=== PATIENT | female | born 1935 | race Caucasian/White ===

== ENCOUNTER 2019-10-08 06:23 | Day surgery (SDC) | payer MEDICARE ==
[~2019-10-08 06:23] MED LIST: Sodium Chloride 0.9% 10 ML Syringe FLUSH PRN
[2019-10-08] MEDS ORDERED: Sodium Chloride 0.9% 10 ML Syringe FLUSH PRN (07:00)
--- NOTE | 2019-10-08 14:42 | OR ---
DATE OF PROCEDURE: 10/08/2019 SURGEON: Madhavi Lane MD POSTOPERATIVE CARE: Postoperative care will be provided mainly at the [address] [place] [address] [facility] in conjunction with [facility]. PREOPERATIVE DIAGNOSIS: Cataract, right eye. POSTOPERATIVE DIAGNOSIS: Cataract, right eye. PROCEDURE: Phacoemulsification with intraocular lens placement, right eye. ANESTHESIA: Topical and intracameral. ESTIMATED BLOOD LOSS: Minimal. COMPLICATIONS: None. PATHOLOGY SPECIMENS: None. SURGICAL FINDINGS: None. INDICATION FOR PROCEDURE: The patient is an 84-year-old female with history of a visually significant cataract in the right eye, which interfered with activities of daily living. This consisted of a nuclear sclerosis cataract. Following careful discussion of the risks, benefits and alternatives to cataract extraction with intraocular lens placement including blindness and , the patient elected to proceed, and informed, written consent was obtained prior to the procedure. DESCRIPTION OF THE PROCEDURE: The patient was previously identified, and a aliya placed above the right eye. All sources, including the patient, indicated that the right eye was the correct eye. The patient was subsequently taken to the operating room where standard monitors were applied. The patient was then prepped and draped in the usual sterile fashion for ophthalmic surgery. Attention was first directed at the 12 o'clock position where a paracentesis port was fashioned. Shugar solution followed by Viscoat was instilled into the eye. Attention was then directed to the 8:30 position where a triplanar incision was made in a near-clear manner using a keratome. A continuous capsulorrhexis was then made using a combination of the cystotome and Utrata forceps. Hydrodissection was achieved using a balanced salt solution, and the lens rotated nicely. Phacoemulsification was then done using a modified [id number] technique without complication. Phaco time was 8.28 CDE. The remaining cortex was removed using the irrigation/aspiration handpiece. Provisc was then instilled into the eye. A Technis lens, model [id number], at 19.5 diopters was then placed in the capsular bag using an [place] injector. The remaining viscoelastic was removed using the irrigation/aspiration forceps. All wounds were then checked and found to be watertight. The lid speculum and drapes were removed. Maxitrol ointment was placed in the patient's right eye, and the eye was shielded. The patient tolerated the procedure well. The patient was instructed to follow up tomorrow. All needle and sponge counts were correct at the end of the procedure. Madhavi Lane MD /[id number]
== END 2019-10-08 08:38 | disposition home or self-care (01) ==
LOC: JP.SDS 06:23
PROVIDERS: ATTEND Ophthalmology
DX: H25.11 Age-related nuclear cataract, right eye (principal); I10 Essential (primary) hypertension
CPT/HCPCS: 66984; V2632

== ENCOUNTER 2019-11-12 06:08 | Day surgery (SDC) | payer MEDICARE ==
[2019-11-12] MEDS ORDERED: Sodium Chloride 0.9% 10 ML Syringe FLUSH PRN (07:00)
--- NOTE | 2019-11-12 13:44 | OR ---
DATE OF PROCEDURE: 11/12/2019 SURGEON: Madhavi Lane MD POSTOPERATIVE CARE: Postoperative care will be provided mainly at the [address] [place] [address] [facility] in conjunction with [facility]. PREOPERATIVE DIAGNOSIS: Cataract, left eye. POSTOPERATIVE DIAGNOSIS: Cataract, left eye. PROCEDURE: Phacoemulsification with intraocular lens placement, left eye. ANESTHESIA: Topical and intracameral. ESTIMATED BLOOD LOSS: Minimal. COMPLICATIONS: None. PATHOLOGY SPECIMENS: None. SURGICAL FINDINGS: None. INDICATION FOR PROCEDURE: The patient is an 84-year-old female with history of a visually significant cataract in the left eye, which interfered with activities of daily living. This consisted of a nuclear sclerosis cataract. Following careful discussion of the risks, benefits and alternatives to cataract extraction with intraocular lens placement including blindness and , the patient elected to proceed, and informed, written consent was obtained prior to the procedure. DESCRIPTION OF THE PROCEDURE: The patient was previously identified, and a ailya placed above the left eye. All sources, including the patient, indicated that the left eye was the correct eye. The patient was subsequently taken to the operating room where standard monitors were applied. The patient was then prepped and draped in the usual sterile fashion for ophthalmic surgery. Attention was first directed at the 12 o'clock position where a paracentesis port was fashioned. Shugar solution followed by Viscoat was instilled into the eye. Attention was then directed to the 8:30 position where a triplanar incision was made in a near-clear manner using a keratome. A continuous capsulorrhexis was then made using a combination of the cystotome and Utrata forceps. Hydrodissection was achieved using a balanced salt solution, and the lens rotated nicely. Phacoemulsification was then done using a modified [id number] technique without complication. Phaco time was 10.41 CDE. The remaining cortex was removed using the irrigation/aspiration handpiece. Provisc was then instilled into the eye. A Technis lens, model [id number], at 19.5 diopters was then placed in the capsular bag using an Liberty injector. The remaining viscoelastic was removed using the irrigation/aspiration forceps. All wounds were then checked and found to be watertight. The lid speculum and drapes were removed. Maxitrol ointment was placed in the patient's left eye, and the eye was shielded. The patient tolerated the procedure well. The patient was instructed to follow up tomorrow. All needle and sponge counts were correct at the end of the procedure. Madhavi Lane MD /[id number]
== END 2019-11-12 07:49 | disposition home or self-care (01) ==
LOC: JP.SDS 06:08
PROVIDERS: ATTEND Ophthalmology
DX: H25.12 Age-related nuclear cataract, left eye (principal)
CPT/HCPCS: 66984; V2632

== ENCOUNTER 2020-07-25 01:59 | Inpatient (IN) | payer MEDICARE ==
--- NOTE | 2020-07-25 02:28 | EDM.PDOC ---
ED HPI GENERAL MEDICAL PROBLEM - General Chief Complaint: Lower Extremity Injury/Pain Stated Complaint: FALL VIA TRI Time Seen by Provider: 07/25/20 02:25 Source of Information: Reports: Patient History Limitations: Reports: No Limitations - History of Present Illness INITIAL COMMENTS - FREE TEXT/NARRATIVE: pt arrived with pain in the left hip. She fell tonight and was able to crawl to the phone. She has not been able to bear wt on the left hip. 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 Pain Score (Numeric/FACES): 5 - Related Data Allergies Allergy/AdvReac Type Severity Reaction Status Date / Time Antihistamines - Alkylamine Allergy Confusion Verified 07/25/20 02:00 aspirin Allergy Abdominal Verified 07/25/20 02:00 Cramps Dairy Products Allergy Diarrhea Verified 07/25/20 02:00 gluten Allergy Diarrhea Verified 07/25/20 02:00 hydrocodone Allergy Confusion Verified 07/25/20 02:00 oxycodone Allergy Confusion Verified 07/25/20 02:00 sulfamethoxazole Allergy Other Verified 07/25/20 02:00 [From Bactrim] trimethoprim [From Bactrim] Allergy Other Verified 07/25/20 02:00 Home Meds: Home Meds traMADol HCl [Tramadol HCl] 25 mg PO DAILY 11/01/17 [History] Metoprolol Succinate [Toprol Xl] 25 mg PO BID 12/23/17 [History] ALPRAZolam [Alprazolam] 0.25 mg PO ASDIRECTED 11/10/19 [History] Cetirizine [ZyrTEC] 10 mg PO DAILY 11/10/19 [History] Gabapentin [Neurontin] 300 mg PO BID 11/10/19 [History] Triazolam 0.25 mg PO BEDTIME PRN 11/10/19 [History] tiZANidine [Zanaflex] 4 mg PO DAILY 11/10/19 [History] Cholecalciferol (Vitamin D3) [Vitamin D3] 1,000 unit PO DAILY 07/25/20 [History] Past Medical History HEENT History: Reports: Cataract, Impaired Vision Other HEENT History: USES CHEATER GLASSES FOR READING, "allergic to the cold" Cardiovascular History: Reports: Hypertension Respiratory History: Reports: Asthma, Bronchitis, Recurrent Other Respiratory History: BRONCHIAL ASTHMA Gastrointestinal History: Reports: Gastritis, GERD, Irritable Bowel Syndrome Other Gastrointestinal History: HAS GASTRITIS WITH WHEAT DAIRY AND SUGAR Genitourinary History: Reports: None 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 left foot and ankle pain. low back pain. left wrist FX Neurological History: Reports: None Psychiatric History: Reports: Other (See Below) Other Psychiatric History: insomnia Endocrine/Metabolic History: Reports: None Hematologic History: Reports: None Immunologic History: Reports: None Oncologic (Cancer) History: Reports: None Dermatologic History: Reports: None - Infectious Disease History Infectious Disease History: Reports: Shingles - Past Surgical History Head Surgeries/Procedures: Reports: None HEENT Surgical History: Reports: Cataract Surgery GI Surgical History: Reports: Cholecystectomy, Colonoscopy Dermatological Surgical History: Reports: Other (See Below) Social & Family History - Family History Family Medical History: Noncontributory - Tobacco Use Tobacco Use Status *Q: Never Tobacco User - Caffeine Use Caffeine Use: Reports: None - Recreational Drug Use Recreational Drug Use: No Review of Systems - Review of Systems Review Of Systems: See Below Constitutional: Reports: No Symptoms Eyes: Reports: No Symptoms Ears: Reports: No Symptoms Nose: Reports: No Symptoms Mouth/Throat: Reports: No Symptoms Respiratory: Reports: No Symptoms Cardiovascular: Reports: No Symptoms GI/Abdominal: Reports: No Symptoms Genitourinary: Reports: No Symptoms Musculoskeletal: Reports: Other (painin the left hip area. ) Skin: Reports: No Symptoms Neurological: Reports: No Symptoms ED EXAM, GENERAL - Physical Exam Exam: See Below Free Text/Narrative:: pt arrived with pain in the left hip area. She fell tonight an hit the hip. She is now not able to weight bear. Exam Limited By: No Limitations General Appearance: Alert, Anxious, Severe Distress Ears: Normal TMs Nose: Normal Inspection Throat/Mouth: Normal Inspection Head: Atraumatic Neck: Normal Inspection Respiratory/Chest: No Respiratory Distress Cardiovascular: Regular Rate, Rhythm, Other ( slight irregularity) GI/Abdominal: Soft, Non-Tender (Female) Exam: Deferred Rectal (Female) Exam: Deferred Back Exam: Normal Inspection Extremities: Normal Inspection Neurological: Alert, Oriented, Normal Cognition Psychiatric: Anxious Course - Vital Signs Last Recorded V/S: Last Vital Signs Temp 35.3 C L 07/25/20 02:11 Pulse 70 07/25/20 02:11 Resp 18 07/25/20 02:11 BP 145/68 H 07/25/20 02:11 Pulse Ox 95 07/25/20 02:11 - Orders/Labs/Meds Orders: Active Orders 24 hr Category Date Time Status Shaikh Catheter Insertion [Insert Urinary Catheter] [OM. Care 07/25/20 02:39 Ordered PC] Stat Urinary Catheter Assessment [RC] ASDIRECTED Care 07/25/20 02:40 Ordered Hip Min 2V or 3V w Pelvis Lt [CR] Stat Exams 07/25/20 02:06 Ordered - Re-Assessments/Exams Free Text/Narrative Re-Assessment/Exam: 07/25/20 02:48 pt had a xray of her left hip which showed a fracture of the neck with some displacement 07/25/20 02:50 Departure - Departure Time of Disposition: 02:50 Disposition: Admitted As Inpatient 66 Condition: Fair Clinical Impression: Closed left hip fracture - Discharge Information Referrals: PCP,None [Primary Care Provider] - Forms: ED Department Discharge Care Plan Goals: admit to Dr Dale. Sepsis Event Note (ED) - Evaluation Sepsis Screening Result: No Definite Risk - Focused Exam Vital Signs: Vital Signs Temp Pulse Resp BP Pulse Ox 07/25/20 02:11 35.3 C L 70 18 145/68 H 95 - My Orders Last 24 Hours: My Active Orders 07/25/20 02:06 Hip Min 2V or 3V w Pelvis Lt [CR] Stat 07/25/20 02:39 Shaikh Catheter Insertion [Insert Urinary Catheter] [OM.PC] Stat 07/25/20 02:40 Urinary Catheter Assessment [RC] ASDIRECTED - Assessment/Plan Last 24 Hours: My Active Orders 07/25/20 02:06 Hip Min 2V or 3V w Pelvis Lt [CR] Stat 07/25/20 02:39 Shaikh Catheter Insertion [Insert Urinary Catheter] [OM.PC] Stat 07/25/20 02:40 Urinary Catheter Assessment [RC] ASDIRECTED
[2020-07-25] MEDS ORDERED: Sodium Chloride 0.9% 1,000 ML IV SCH (03:00)
[2020-07-25] MEDS ORDERED: Dextrose 5%-0.9% NaCl 1,000 ML IV SCH (03:15)
[2020-07-25] MEDS ORDERED: HYDROmorphone/Normal Saline 15 MG/30 ML PCA IV ONE (08:05)
[2020-07-25] MEDS ORDERED: HYDROmorphone/Normal Saline 15 MG/30 ML PCA IV PRN (08:15)
--- NOTE | 2020-07-25 08:28 | PCM.HP.2 ---
H&P History of Present Illness - General Date of Service: 07/25/20 Admit Problem/Dx: Admission Diagnosis/Problem Admission Diagnosis/Problem Hip fracture requiring operative repair Source of Information: Patient, EMS Notes Reviewed History Limitations: Reports: No Limitations - History of Present Illness Initial Comments - Free Text/Narative: She became dizzy last night and got up and fell and had severe pain. Called EMS and came to the hospital and found o have a fx of the left hip. Was checked for Covid-19 and was positive. She is having severe leg spasms as well as pain. Onset of Symptoms: Reports: Sudden Location: Reports: Lower Extremity, Left left hip Pain Score (Numeric/FACES): 4 - Related Data Allergies/Adverse Reactions: Allergies Allergy/AdvReac Type Severity Reaction Status Date / Time sulfamethoxazole Allergy Other Verified 07/25/20 02:00 [From Bactrim] trimethoprim [From Bactrim] Allergy Other Verified 07/25/20 02:00 Antihistamines - Alkylamine AdvReac Confusion Verified 07/25/20 07:08 aspirin AdvReac Abdominal Verified 07/25/20 07:08 Cramps Dairy Products AdvReac Diarrhea Verified 07/25/20 07:08 gluten AdvReac Diarrhea Verified 07/25/20 07:08 hydrocodone AdvReac Confusion Verified 07/25/20 07:08 oxycodone AdvReac Confusion Verified 07/25/20 07:08 Home Medications: Home Meds traMADol HCl [Tramadol HCl] 25 mg PO DAILY 11/01/17 [History] Metoprolol Succinate [Toprol Xl] 25 mg PO BID 12/23/17 [History] ALPRAZolam [Alprazolam] 0.25 mg PO ASDIRECTED 11/10/19 [History] Cetirizine [ZyrTEC] 10 mg PO DAILY 11/10/19 [History] Gabapentin [Neurontin] 300 mg PO BID 11/10/19 [History] Triazolam 0.25 mg PO BEDTIME PRN 11/10/19 [History] tiZANidine [Zanaflex] 4 mg PO DAILY 11/10/19 [History] Cholecalciferol (Vitamin D3) [Vitamin D3] 1,000 unit PO DAILY 07/25/20 [History] Past Medical History HEENT History: Reports: Cataract, Impaired Vision Other HEENT History: USES CHEATER GLASSES FOR READING, "allergic to the cold" Cardiovascular History: Reports: Hypertension Respiratory History: Reports: Asthma, Bronchitis, Recurrent Other Respiratory History: BRONCHIAL ASTHMA Gastrointestinal History: Reports: Gastritis, GERD, Irritable Bowel Syndrome Other Gastrointestinal History: HAS GASTRITIS WITH WHEAT DAIRY AND SUGAR Genitourinary History: Reports: 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 left foot and ankle pain. low back pain. left wrist FX Neurological History: Reports: None Psychiatric History: Reports: Other (See Below) Other Psychiatric History: insomnia Endocrine/Metabolic History: Reports: None Hematologic History: Reports: None Immunologic History: Reports: None Oncologic (Cancer) History: Reports: None Dermatologic History: Reports: None - Infectious Disease History Infectious Disease History: Reports: Shingles - Past Surgical History Head Surgeries/Procedures: Reports: None HEENT Surgical History: Reports: Cataract Surgery GI Surgical History: Reports: Cholecystectomy, Colonoscopy Dermatological Surgical History: Reports: Other (See Below) Social & Family History - Family History Family Medical History: Noncontributory - Tobacco Use Tobacco Use Status *Q: Never Tobacco User - Caffeine Use Caffeine Use: Reports: Coffee - Recreational Drug Use Recreational Drug Use: No H&P Review of Systems - Review of Systems: Review Of Systems: See Below General: Reports: Weakness HEENT: Reports: No Symptoms Pulmonary: Reports: No Symptoms Cardiovascular: Reports: No Symptoms Gastrointestinal: Reports: No Symptoms Genitourinary: Reports: No Symptoms Musculoskeletal: Reports: Leg Pain Skin: Reports: No Symptoms Psychiatric: Reports: No Symptoms Neurological: Reports: No Symptoms Hematologic/Lymphatic: Reports: No Symptoms Exam - Exam Exam: See Below - Vital Signs Vital Signs: Last Vital Signs Temp 97.4 F 07/25/20 04:13 Pulse 60 07/25/20 04:13 Resp 18 07/25/20 04:13 BP 175/80 H 07/25/20 04:13 Pulse Ox 95 07/25/20 02:11 Weight: 140 lb - Exam General: Alert, Oriented, 4 HEENT: PERRLA, Hearing Intact, Mucosa Moist & [place], Nares Patent, Normal Nasal Septum, Posterior Pharynx Clear, Conjunctiva Clear, EOMI, EACs Clear, TMs Clear Neck: Supple, Trachea Midline, 2 Lungs: Clear to Auscultation, Normal Respiratory Effort Cardiovascular: Regular Rate, Regular Rhythm GI/Abdominal Exam: Normal Bowel Sounds, Soft, Non-Tender, No Organomegaly, No Distention, No Abnormal Bruit, No Mass, Pelvis Stable Extremities: Joint Swelling, Leg Pain Peripheral Pulses: 1+: Radial (L), Radial (R) Skin: Warm, Dry, Intact DTR: 1+: Bicep (L), Bicep (R) Psychiatric: Alert, Normal Affect, Normal Mood - Patient Data Lab Results Last 24 hrs: Laboratory Results - last 24 hr 07/25/20 07/25/20 07/25/20 Range/Units 02:55 02:55 02:55 WBC 3.9 L (4.5-11.0) K/uL RBC 3.10 L (3.30-5.50) M/uL Hgb 9.5 L (12.0-15.0) g/dL Hct 29.6 L (36.0-48.0) % MCV 96 (80-98) fL MCH 31 (27-31) pg MCHC 32 (32-36) % Plt Count 132 L (150-400) K/uL Neut % (Auto) 78 H (36-66) % Lymph % (Auto) 14 L (24-44) % [place] % (Auto) 8 H (2-6) % Eos % (Auto) 1 L (2-4) % Baso % (Auto) 0 (0-1) % Sodium 128 L (140-148) mmol/L Potassium 3.9 (3.6-5.2) mmol/L Chloride 93 L (100-108) mmol/L Carbon Dioxide 25 (21-32) mmol/L Anion Gap 13.9 (5.0-14.0) mmol/L BUN 21 H (7-18) mg/dL Creatinine 1.2 H (0.6-1.0) mg/dL Est Cr Clr Drug Dosing 32.49 mL/min Estimated GFR (MDRD) 43 L (>60) Glucose 94 (74-106) mg/dL Calcium 8.4 L (8.5-10.1) mg/dL Total Bilirubin 0.2 (0.2-1.0) mg/dL AST 29 (15-37) U/L ALT 27 (12-78) U/L Alkaline Phosphatase 95 (46-116) U/L Total Protein 6.4 (6.4-8.2) g/dL Albumin 3.2 L (3.4-5.0) g/dL Globulin 3.2 (2.3-3.5) g/dL Albumin/Globulin Ratio 1.0 L (1.2-2.2) Urine Color Yellow (YELLOW) Urine Appearance Clear (CLEAR) Urine pH 6.0 (5.0-8.0) Ur Specific [place] 1.020 (1.008-1.030) Urine Protein Negative (NEGATIVE) mg/dL Urine Glucose (UA) Negative (NEGATIVE) mg/dL Urine Ketones Negative (NEGATIVE) mg/dL Urine Occult Blood Small H (NEGATIVE) Urine Nitrite Negative (NEGATIVE) Urine Bilirubin Negative (NEGATIVE) Urine Urobilinogen 0.2 (0.2-1.0) EU/dL Ur Leukocyte Esterase Negative (NEGATIVE) Urine RBC 0-5 (0-5) Urine WBC 0-5 (0-5) Ur Epithelial Cells Few Amorphous Sediment Not seen Urine Bacteria Few Urine Mucus Not seen SARS-CoV-2 RNA (SHRAVAN) (NEGATIVE) 07/25/20 Range/Units 03:30 WBC (4.5-11.0) K/uL RBC (3.30-5.50) M/uL Hgb (12.0-15.0) g/dL Hct (36.0-48.0) % MCV (80-98) fL MCH (27-31) pg MCHC (32-36) % Plt Count (150-400) K/uL Neut % (Auto) (36-66) % Lymph % (Auto) (24-44) % [place] % (Auto) (2-6) % Eos % (Auto) (2-4) % Baso % (Auto) (0-1) % Sodium (140-148) mmol/L Potassium (3.6-5.2) mmol/L Chloride (100-108) mmol/L Carbon Dioxide (21-32) mmol/L Anion Gap (5.0-14.0) mmol/L BUN (7-18) mg/dL Creatinine (0.6-1.0) mg/dL Est Cr Clr Drug Dosing mL/min Estimated GFR (MDRD) (>60) Glucose (74-106) mg/dL Calcium (8.5-10.1) mg/dL Total Bilirubin (0.2-1.0) mg/dL AST (15-37) U/L ALT (12-78) U/L Alkaline Phosphatase (46-116) U/L Total Protein (6.4-8.2) g/dL Albumin (3.4-5.0) g/dL Globulin (2.3-3.5) g/dL Albumin/Globulin Ratio (1.2-2.2) Urine Color (YELLOW) Urine Appearance (CLEAR) Urine pH (5.0-8.0) Ur Specific [place] (1.008-1.030) Urine Protein (NEGATIVE) mg/dL Urine Glucose (UA) (NEGATIVE) mg/dL Urine Ketones (NEGATIVE) mg/dL Urine Occult Blood (NEGATIVE) Urine Nitrite (NEGATIVE) Urine Bilirubin (NEGATIVE) Urine Urobilinogen (0.2-1.0) EU/dL Ur Leukocyte Esterase (NEGATIVE) Urine RBC (0-5) Urine WBC (0-5) Ur Epithelial Cells Amorphous Sediment Urine Bacteria Urine Mucus SARS-CoV-2 RNA (SHRAVAN) Positive H (NEGATIVE) Result Diagrams: 07/25/20 02:55 07/25/20 02:55 Sepsis Event Note - Evaluation Sepsis Screening Result: No Definite Risk - Focused Exam Vital Signs: Vital Signs Temp Pulse Resp BP Pulse Ox 07/25/20 04:13 97.4 F 60 18 175/80 H 07/25/20 02:11 95.5 F L 70 18 145/68 H 95 Problem List Initiated/Reviewed/Updated: Yes Orders Last 24hrs: Active Orders 24 hr Category Date Time Status Admission Status [Patient Status] [ADT] Routine ADT 07/25/20 03:02 Active Shaikh Catheter Insertion [Insert Urinary Catheter] [OM. Care 07/25/20 02:39 Ordered PC] Stat Notify Provider Consults [RC] ASDIRECTED Care 07/25/20 03:07 Active Urinary Catheter Assessment [RC] ASDIRECTED Care 07/25/20 02:40 Active Consult to Orthopedics [CONS] Routine Cons 07/25/20 03:06 Ordered NPO Now [Nothing per Oral Now Diet] [DIET] Diet 07/25/20 Breakfast Active Chest 1V Frontal [CR] Stat Exams 07/25/20 02:45 Taken Hip Min 2V or 3V w Pelvis Lt [CR] Stat Exams 07/25/20 02:06 Taken Dextrose 5%-0.9% NaCl [Dextrose 5%-Normal Saline] 1,000 Med 07/25/20 03:15 Active ml IV ASDIRECTED EKG 12 Lead [EK] Routine Ther 07/25/20 02:45 Ordered Medication Orders Dextrose/Sodium Chloride (Dextrose 5%-Normal Saline) 1,000 mls @ 25 mls/hr IV ASDIRECTED DIANA Last Admin: 07/25/20 04:53 Dose: 25 mls/hr Documented by: DARLING Assessment/Plan Comment:: Assessment/Plan: #1. Fracture of left hip. She will be going for surgery today. I have started Dilaudid for pain control. #2. Covid-19 positive #3. History of IBS: Stable #4. HTN: elevated now secondary to pain #5. Gout: Stable - Mortality Measure Prognosis:: Good
[2020-07-25] MEDS ORDERED: Naloxone 0.4 MG/ML SDV IV PRN (09:00)
--- NOTE | 2020-07-25 10:07 | CR ---
Hip Min 2V or 3V w Pelvis Lt, CLINICAL HISTORY: Left hip pain, fall FINDINGS: There is a fracture of the left femoral neck. There is some abduction of the proximal aspect. 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 IMPRESSION: Femoral neck fracture CHEST: AP supine CLINICAL HISTORY:Preop COMPARISON:None available FINDINGS: Lungs are hyperaerated. Heart size is normal. There are atherosclerotic changes in the aorta. There is an old right rib fracture. Impression: Emphysematous changes No acute cardiopulmonary process
[2020-07-25] MEDS ORDERED: ceFAZolin 2 GM in Premix Bag 1 BAG IV ONE (10:30)
[2020-07-25] MEDS ORDERED: Propofol 200 MG/20 ML SDV ONE (11:03)
[2020-07-25] MEDS ORDERED: fentaNYL 100 MCG/2 ML SDV ONE (11:03)
[2020-07-25] MEDS ORDERED: Midazolam 1 MG/ML 2 ML SDV ONE (11:04)
[2020-07-25] MEDS ORDERED: ALPRAZolam 0.25 MG Tab PO PRN (12:30)
[2020-07-25] MEDS ORDERED: ePHEDrine 50 MG/ML SDV IV ONE (13:00)
[2020-07-25] MEDS ORDERED: ePHEDrine 50 MG/ML SDV ONE (13:00)
[2020-07-25] MEDS ORDERED: Povidone-Iodine 10% Soln 118.25 ML Bottle ONE (13:33)
[2020-07-25] MEDS ORDERED: ALPRAZolam 0.25 MG Tab PO SCH (15:00)
[2020-07-25] MEDS ORDERED: Dextrose 5%-0.45% NaCl 1,000 ML IV SCH (15:00)
[2020-07-25] MEDS ORDERED: Temazepam 15 MG Cap PO PRN (15:02)
[2020-07-25] MEDS: tiZANidine 4 MG Tab PO SCH ×2 (15:06→17:26)
[2020-07-25] MEDS ORDERED: Metoclopramide 10 MG/2 ML SDV IV PRN (15:22)
--- NOTE | 2020-07-25 15:22 | CR ---
Pelvis 1V or 2V CLINICAL HISTORY: Postop FINDINGS: Patient has had placement of a left hip hemiprosthesis. Components appear well seated IMPRESSION: Status post op left hip prosthesis
[2020-07-25] MEDS: Ondansetron 4 MG/2 ML SDV IVPUSH PRN (15:30)
[2020-07-25] MEDS: Metoprolol Succinate 25 MG Tab.ER PO SCH ×2 (18:09→20:50)
[2020-07-25] MEDS: ceFAZolin 1 GM in Premix Bag 1 BAG IV SCH (20:23)
[2020-07-25] MEDS ORDERED: Gabapentin 300 MG Cap PO SCH (21:00)
[2020-07-25] MEDS ORDERED: HYDROmorphone 0.5 MG/0.5 ML Syringe IVPUSH PRN (22:26)
[2020-07-26] MEDS: ceFAZolin 1 GM in Premix Bag 1 BAG IV SCH ×2 (04:23→12:09)
[2020-07-26] MEDS: traMADol 50 MG Tab PO PRN ×3 (08:05→20:29)
--- NOTE | 2020-07-26 08:19 | PCM.PN ---
- General Info Date of Service: 07/26/20 Subjective Update: Having pain with movement in the left hip - Review of Systems General: Reports: Weakness HEENT: Reports: No Symptoms Pulmonary: Reports: Shortness of Breath Cardiovascular: Reports: No Symptoms Gastrointestinal: Reports: No Symptoms Genitourinary: Reports: No Symptoms Musculoskeletal: Reports: Leg Pain Neurological: Reports: Dizziness Psychiatric: Reports: Anxiety - Patient Data Vitals - Most Recent: Last Vital Signs Temp 100.8 F H 07/26/20 07:36 Pulse 70 07/26/20 07:36 Resp 18 07/26/20 07:36 BP 123/67 07/26/20 07:36 Pulse Ox 99 07/26/20 07:43 Orthostatic Blood Pressure [ 121/64 Supine] Orthostatic Blood Pressure [ 119/62 Sitting] Orthostatic Blood Pressure [ 83/59 Standing] Weight - Most Recent: 140 lb I&O - Last 24 Hours: Intake & Output 07/25/20 07/26/20 07/26/20 22:59 06:59 14:59 Intake Total 1064 508 Output Total 800 450 Balance 264 58 Med Orders - Current: Current Medications Alprazolam (Xanax) 0.25 mg PO DAILY PRN PRN Reason: Anxiety Last Admin: 07/26/20 00:42 Dose: 0.25 mg Documented by: Bandage/Support Products ( Nasal Director Of Planning) 1 applic NASBOTH BID [facility] Stop: 08/01/20 21:01 Cetirizine HCl (Zyrtec) 10 mg PO DAILY [facility] Cholecalciferol (Vitamin D3) 25 mcg PO DAILY [facility] Enoxaparin Sodium (Lovenox) 30 mg SUBCUT Q24H [facility] Gabapentin (Neurontin) 400 mg PO TID [facility] Gabapentin (Neurontin) 300 mg PO TID [facility] Hydromorphone HCl (Dilaudid) 0.5 mg IVPUSH Q2H PRN PRN Reason: Pain Cefazolin Sodium/Dextrose 1 gm (/ Premix) 50 mls @ 100 mls/hr IV Q8H [facility] Stop: 07/26/20 12:29 Last Admin: 07/26/20 04:23 Dose: 100 mls/hr Documented by: Dextrose/Sodium Chloride (Dextrose 5%-1/2 Ns) 1,000 mls @ 100 mls/hr IV ASDI RECTED [facility] Last Admin: 07/25/20 17:30 Dose: 100 mls/hr Documented by: Metoclopramide HCl (Reglan) 10 mg IV Q6H PRN PRN Reason: Nausea/Vomiting Last Admin: 07/25/20 16:06 Dose: 10 mg Documented by: Metoprolol Succinate (Toprol Xl) 25 mg PO BID [facility] Last Admin: 07/25/20 20:50 Dose: Not Given Documented by: Ondansetron HCl (Zofran) 4 mg IVPUSH Q6H PRN PRN Reason: Nausea/Vomiting Last Admin: 07/25/20 15:30 Dose: 4 mg Documented by: Temazepam (Restoril) 15 mg PO BEDTIME PRN PRN Reason: Insomnia Last Admin: 07/25/20 22:39 Dose: 15 mg Documented by: Tizanidine HCl (Zanaflex) 4 mg PO DAILY [facility] Last Admin: 07/25/20 17:26 Dose: 4 mg Documented by: Tramadol HCl (Ultram) 50 mg PO Q4H PRN PRN Reason: Pain (mild 1-3) Last Admin: 07/26/20 08:05 Dose: 50 mg Documented by: Discontinued Medications Ephedrine Sulfate (Ephedrine Sulfate) 50 mg .ROUTE .STK-MED ONE Stop: 07/25/20 13:01 Fentanyl (Sublimaze) Confirm Administered Dose 100 mcg .ROUTE .STK-MED ONE Stop: 07/25/20 11:04 Gabapentin (Neurontin) 300 mg PO BID [facility] Last Admin: 07/25/20 20:48 Dose: 300 mg Documented by: Hydromorphone HCl (Dilaudid [employer] 15 Mg In Ns 30 Ml) Confirm Administered Dose 15 mg IV .STK-MED ONE Stop: 07/25/20 08:06 Last Admin: 07/25/20 08:12 Dose: 15 mg Documented by: Hydromorphone HCl (Dilaudid [employer] Conservationist 15 Mg In Ns 30 Ml) 0 mg IV ASDIRECTED PRN; Protocol PRN Reason: PAIN CONTROL Last Admin: 07/25/20 09:39 Dose: 15 mg Documented by: Sodium Chloride (Normal Saline) 1,000 mls @ 999 mls/hr IV ASDIRECTED [facility] Dextrose/Sodium Chloride (Dextrose 5%-Normal Saline) 1,000 mls @ 25 mls/hr IV ASDIRECTED [facility] Last Admin: 07/25/20 04:53 Dose: 25 mls/hr Documented by: Cefazolin Sodium/Dextrose 2 gm (/ Premix) 50 mls @ 100 mls/hr IV ONETIME ONE Stop: 07/25/20 10:59 Last Admin: 07/25/20 12:38 Dose: 100 mls/hr Documented by: Midazolam HCl (Versed 1 Mg/Ml) Confirm Administered Dose 2 mg .ROUTE .STK-MED ONE Stop: 07/25/20 11:05 Naloxone HCl (Narcan) 0.1 mg IV ASDIRECTED PRN PRN Reason: decreased respiratory rate Povidone Iodine (Betadine 10% Soln) Confirm Administered Dose 1 ml .ROUTE .STK- MED ONE Stop: 07/25/20 13:34 Last Admin: 07/25/20 13:58 Dose: 40 ml Documented by: Propofol (Diprivan 20 Ml) Confirm Administered Dose 200 mg .ROUTE .STK-MED ONE Stop: 07/25/20 11:04 - Exam General: Alert, Oriented HEENT: Pupils Equal, Pupils Reactive, EOMI, Mucous Membr. Moist/Labelle Neck: Supple Lungs: Clear to Auscultation, Normal Respiratory Effort Cardiovascular: Regular Rate, Regular Rhythm GI/Abdominal Exam: Normal Bowel Sounds, Soft, Non-Tender, No Organomegaly, No Distention, No Abnormal Bruit, No Mass, Pelvis Stable Back Exam: Normal Inspection, Full Range of Motion Peripheral Pulses: 1+: Radial (L), Radial (R) Skin: Warm, Dry, Intact Neurological: No New Focal Deficit Psy/Mental Status: Alert, Normal Affect, Normal Mood Sepsis Event Note - Evaluation Sepsis Screening Result: No Definite Risk - Focused Exam Vital Signs: Vital Signs Temp Pulse Resp BP Pulse Ox 07/26/20 07:43 99 07/26/20 07:36 100.8 F H 70 18 123/67 99 07/26/20 04:26 99.7 F 69 16 126/70 98 07/26/20 01:45 96 07/25/20 22:26 98.6 F 64 18 119/62 99 - Problem List Review Problem List Initiated/Reviewed/Updated: Yes - My Orders Last 24 Hours: My Active Orders 07/25/20 Breakfast NPO Now [Nothing per Oral Now Diet] [DIET] 07/25/20 08:30 Patient Status [ADT] Routine Oxygen Therapy [RC] PRN VTE/DVT Education [RC] Per Unit Routine Vital Signs [RC] Q4H Resuscitation Status Routine 07/25/20 10:00 tiZANidine [Zanaflex] 4 mg PO DAILY 07/25/20 12:30 ALPRAZolam [Xanax] 0.25 mg PO DAILY PRN 07/26/20 09:00 Gabapentin [Neurontin] 300 mg PO TID Gabapentin [Neurontin] 400 mg PO TID - Plan Plan:: Assessment/Plan: #1. Fracture of left hip. She is S/P hip repair and having pain in the joint. She was complaining of SOB this morning but very anxious. I have increased Neurontin to 400 tid to try to control pain. #2. Covid-19 positive #3. History of IBS: Stable #4. HTN: elevated now secondary to pain. BP good control. #5. Gout: Stable
[2020-07-26] MEDS ORDERED: Gabapentin 300 MG Cap PO SCH (09:00)
[2020-07-26] MEDS: Metoprolol Succinate 25 MG Tab.ER PO SCH ×2 (09:20→20:29)
[2020-07-26] MEDS: Ondansetron 4 MG/2 ML SDV IVPUSH PRN ×2 (09:55→20:29)
[2020-07-26] MEDS: Enoxaparin 30 MG/0.3 ML Syringe SUBCUT SCH (09:57)
[2020-07-26] MEDS: Gabapentin 400 MG Cap PO SCH ×3 (09:57→20:28)
[2020-07-26] MEDS: Cholecalciferol (Vitamin D3) 25 MCG Tab PO SCH (09:58)
[2020-07-26] MEDS: Cetirizine 10 MG Tab PO SCH (09:58)
[2020-07-26] MEDS: tiZANidine 4 MG Tab PO SCH (10:06)
[2020-07-26] MEDS: Docusate Sodium 100 MG Cap PO SCH ×2 (10:07→20:33)
[2020-07-26] MEDS: NS + KCl 20mEq/L 1,000 ML IV SCH (12:24)
[2020-07-26] MEDS: Magnesium Sulfate/Water 2 GM in Premix Bag 1 BAG IV SCH ×3 (12:26→23:41)
[2020-07-26] MEDS: Nozin Nasal Sanitizer NASBOTH SCH ×2 (12:27→20:28)
[2020-07-26] MEDS ORDERED: Albuterol 8 GM Inhaler INH PRN (16:18)
[2020-07-26] MEDS: Acetaminophen 325 MG Tab PO PRN (20:59)
[2020-07-27] MEDS: Acetaminophen 325 MG Tab PO PRN ×3 (03:00→20:42)
[2020-07-27] MEDS: Enoxaparin 30 MG/0.3 ML Syringe SUBCUT SCH (08:47)
[2020-07-27] MEDS: Docusate Sodium 100 MG Cap PO SCH ×2 (08:48→20:16)
[2020-07-27] MEDS: Gabapentin 400 MG Cap PO SCH ×3 (08:48→20:40)
[2020-07-27] MEDS: tiZANidine 4 MG Tab PO SCH (08:48)
[2020-07-27] MEDS: Nozin Nasal Sanitizer NASBOTH SCH ×2 (08:48→20:42)
[2020-07-27] MEDS: Cetirizine 10 MG Tab PO SCH (08:48)
[2020-07-27] MEDS: Cholecalciferol (Vitamin D3) 25 MCG Tab PO SCH (08:48)
[2020-07-27] MEDS: NS + KCl 20mEq/L 1,000 ML IV SCH (08:51)
[2020-07-27] MEDS: Metoprolol Succinate 25 MG Tab.ER PO SCH ×2 (08:53→20:16)
[2020-07-27] MEDS: Ferrous Sulfate 325 MG Tab PO SCH (09:44)
--- NOTE | 2020-07-27 10:57 | PCM.SURGPN ---
- General Info Date of Service: 07/26/20 Date of Surgery/Procedure: 07/25/20 Post-Op Diagnosis: left femoral neck fracture Functional Status: Reports: Incentive Spirometry - Review of Systems General: Reports: Fatigue Musculoskeletal: Reports: Leg Pain Skin: Reports: No Symptoms Neurological: Reports: No Symptoms Psychiatric: Reports: Anxiety - Patient Data Vitals - Most Recent: Last Vital Signs Temp 36.9 C 07/27/20 07:42 Pulse 100 07/27/20 09:56 Resp 18 07/27/20 07:42 BP 106/48 L 07/27/20 08:53 Pulse Ox 92 L 07/27/20 07:42 Orthostatic Blood Pressure [ 121/64 Supine] Orthostatic Blood Pressure [ 119/62 Sitting] Orthostatic Blood Pressure [ 83/59 Standing] Weight - Most Recent: 63.503 kg I&O - Last 24 Hours: Intake & Output 07/26/20 07/27/20 07/27/20 22:59 06:59 14:59 Intake Total 953 958 Output Total 475 900 Balance 478 58 Lab Results Last 24 Hrs: Laboratory Results - last 24 hr 07/27/20 07/27/20 Range/Units 05:52 05:52 WBC 3.4 L (4.5-11.0) K/uL RBC 2.42 L (3.30-5.50) M/uL Hgb 7.4 L (12.0-15.0) g/dL Hct 23.0 L (36.0-48.0) % MCV 95 (80-98) fL MCH 31 (27-31) pg MCHC 32 (32-36) % Plt Count 98 L (150-400) K/uL Neut % (Auto) 70 H (36-66) % Lymph % (Auto) 17 L (24-44) % [place] % (Auto) 11 H (2-6) % Eos % (Auto) 2 (2-4) % Baso % (Auto) 0 (0-1) % Sodium 131 L (140-148) mmol/L Potassium 4.2 (3.6-5.2) mmol/L Chloride 99 L (100-108) mmol/L Carbon Dioxide 27 (21-32) mmol/L Anion Gap 9.2 (5.0-14.0) mmol/L BUN 14 (7-18) mg/dL Creatinine 1.1 H (0.6-1.0) mg/dL Est Cr Clr Drug Dosing 38.17 mL/min Estimated GFR (MDRD) 47 L (>60) Glucose 99 (74-106) mg/dL Calcium 7.5 L (8.5-10.1) mg/dL Magnesium 2.9 H D (1.8-2.4) mg/dL Total Bilirubin 0.3 (0.2-1.0) mg/dL AST 31 (15-37) U/L ALT 20 (12-78) U/L Alkaline Phosphatase 61 (46-116) U/L Total Protein 5.3 L (6.4-8.2) g/dL Albumin 2.2 L (3.4-5.0) g/dL Globulin 3.1 (2.3-3.5) g/dL Albumin/Globulin Ratio 0.7 L (1.2-2.2) Bert Results Last 24 Hrs: Microbiology 07/27/20 09:16 Group A Streptococcus Rapid Screen - Final Throat NEGATIVE STREP A SCREEN REFERENCE RANGE: NEGATIVE Med Orders - Current: Current Medications Acetaminophen (Tylenol) 650 mg PO Q4H PRN PRN Reason: Fever Last Admin: 07/27/20 03:00 Dose: 650 mg Documented by: Albuterol (Ventolin Hfa) 0 gm INH Q4H PRN PRN Reason: Cough Alprazolam (Xanax) 0.25 mg PO DAILY PRN PRN Reason: Anxiety Last Admin: 07/26/20 00:42 Dose: 0.25 mg Documented by: Bandage/Support Products ( Nasal Complaint Manager) 1 applic NASBOTH BID [facility] Stop: 08/01/20 21:01 Last Admin: 07/27/20 08:48 Dose: 1 swab Documented by: Cetirizine HCl (Zyrtec) 10 mg PO DAILY [facility] Last Admin: 07/27/20 08:48 Dose: 10 mg Documented by: Cholecalciferol (Vitamin D3) 25 mcg PO DAILY [facility] Last Admin: 07/27/20 08:48 Dose: 25 mcg Documented by: Docusate Sodium (Colace) 100 mg PO BID [facility] Last Admin: 07/27/20 08:48 Dose: 100 mg Documented by: Enoxaparin Sodium (Lovenox) 30 mg SUBCUT Q24H [facility] Last Admin: 07/27/20 08:47 Dose: 30 mg Documented by: Ferrous Sulfate (Ferrous Sulfate) 325 mg PO WITHBREAKFAST [facility] Last Admin: 07/27/20 09:44 Dose: 325 mg Documented by: Gabapentin (Neurontin) 400 mg PO TID [facility] Last Admin: 07/27/20 08:48 Dose: 400 mg Documented by: Hydromorphone HCl (Dilaudid) 0.5 mg IVPUSH Q2H PRN PRN Reason: Pain Potassium Chloride/Sodium Chloride (Normal Saline With 20 Meq Kcl) 1,000 mls @ 50 mls/hr IV ASDIRECTED [facility] Last Admin: 07/27/20 08:51 Dose: 50 mls/hr Documented by: Metoclopramide HCl (Reglan) 10 mg IV Q6H PRN PRN Reason: Nausea/Vomiting Last Admin: 07/25/20 16:06 Dose: 10 mg Documented by: Metoprolol Succinate (Toprol Xl) 25 mg PO BID [facility] Last Admin: 07/27/20 08:53 Dose: Not Given Documented by: Ondansetron HCl (Zofran) 4 mg IVPUSH Q6H PRN PRN Reason: Nausea/Vomiting Last Admin: 07/26/20 20:29 Dose: 4 mg Documented by: Temazepam (Restoril) 15 mg PO BEDTIME PRN PRN Reason: Insomnia Last Admin: 07/25/20 22:39 Dose: 15 mg Documented by: Tizanidine HCl (Zanaflex) 4 mg PO DAILY [facility] Last Admin: 07/27/20 08:48 Dose: 4 mg Documented by: Tramadol HCl (Ultram) 50 mg PO Q4H PRN PRN Reason: Pain (mild 1-3) Last Admin: 07/26/20 20:29 Dose: 50 mg Documented by: Discontinued Medications Ephedrine Sulfate (Ephedrine Sulfate) 50 mg .ROUTE .STK-MED ONE Stop: 07/25/20 13:01 Fentanyl (Sublimaze) Confirm Administered Dose 100 mcg .ROUTE .STK-MED ONE Stop: 07/25/20 11:04 Gabapentin (Neurontin) 300 mg PO BID [facility] Last Admin: 07/25/20 20:48 Dose: 300 mg Documented by: Hydromorphone HCl (Dilaudid Seam Steamer 15 Mg In Ns 30 Ml) Confirm Administered Dose 15 mg IV .STK-MED ONE Stop: 07/25/20 08:06 Last Admin: 07/25/20 08:12 Dose: 15 mg Documented by: Hydromorphone HCl (Dilaudid Seam Steamer 15 Mg In Ns 30 Ml) 0 mg IV ASDIRECTED PRN; Protocol PRN Reason: POLYSOMNOGRAPHY TECHNOLOGIST PAIN CONTROL Last Admin: 07/25/20 09:39 Dose: 15 mg Documented by: Sodium Chloride (Normal Saline) 1,000 mls @ 999 mls/hr IV ASDIRECTED [facility] Dextrose/Sodium Chloride (Dextrose 5%-Normal Saline) 1,000 mls @ 25 mls/hr IV ASDIRECTED [facility] Last Admin: 07/25/20 04:53 Dose: 25 mls/hr Documented by: Cefazolin Sodium/Dextrose 2 gm (/ Premix) 50 mls @ 100 mls/hr IV ONETIME ONE Stop: 07/25/20 10:59 Last Admin: 07/25/20 12:38 Dose: 100 mls/hr Documented by: Cefazolin Sodium/Dextrose 1 gm (/ Premix) 50 mls @ 100 mls/hr IV Q8H [facility] Stop: 07/26/20 12:29 Last Admin: 07/26/20 12:09 Dose: 100 mls/hr Documented by: Dextrose/Sodium Chloride (Dextrose 5%-1/2 Ns) 1,000 mls @ 100 mls/hr IV ASDIRECTED [facility] Last Admin: 07/25/20 17:30 Dose: 100 mls/hr Documented by: Magnesium Sulfate 2 gm/ Premix 50 mls @ 25 mls/hr IV Q6H [facility] Stop: 07/27/20 01:59 Last Admin: 07/26/20 23:41 Dose: 25 mls/hr Documented by: Midazolam HCl (Versed 1 Mg/Ml) Confirm Administered Dose 2 mg .ROUTE .STK-MED ONE Stop: 07/25/20 11:05 Naloxone HCl (Narcan) 0.1 mg IV ASDIRECTED PRN PRN Reason: decreased respiratory rate Povidone Iodine (Betadine 10% Soln) Confirm Administered Dose 1 ml .ROUTE .STK- MED ONE Stop: 07/25/20 13:34 Last Admin: 07/25/20 13:58 Dose: 40 ml Documented by: Propofol (Diprivan 20 Ml) Confirm Administered Dose 200 mg .ROUTE .STK-MED ONE Stop: 07/25/20 11:04 - Exam Wound/Incisions: Dressing Dry and Intact General: Alert, Oriented HEENT: Pupils Equal Neck: Supple Extremities: Leg Pain, Limited Range of Motion Skin: Warm, Dry Neurological: No New Focal Deficit Psy/Mental Status: Alert, Normal Affect, Normal Mood Sepsis Event Note - Evaluation Sepsis Screening Result: No Definite Risk - Focused Exam Vital Signs: Vital Signs Temp Temp Pulse Resp BP BP Pulse Ox 07/27/20 09:56 100 07/27/20 08:53 106/48 L 07/27/20 07:42 36.9 C 45 L 18 106/48 L 92 L 07/27/20 07:00 100 07/27/20 02:52 37.1 C 68 16 114/52 L 98 07/27/20 01:33 99 07/27/20 00:05 66 98 - Problem List & Annotations (1) Closed left hip fracture SNOMED Code(s): 049707272 Code(s): S72.002A - FRACTURE OF UNSP PART OF NECK OF LEFT FEMUR, INIT Status: Acute Current Visit: Yes Qualifiers: Encounter type: initial encounter Qualified Code(s): S72.002A - Fracture of unspecified part of neck of left femur, initial encounter for closed fracture (2) Status post-operative repair of closed hip fracture SNOMED Code(s): 510809677 Code(s): Z98.890 - OTHER SPECIFIED POSTPROCEDURAL STATES; Z87.81 - PERSONAL HISTORY OF (HEALED) TRAUMATIC FRACTURE Status: Acute Current Visit: Yes - Problem List Review Problem List Initiated/Reviewed/Updated: Yes - My Orders Last 24 Hours: Active Orders 24 hr Category Date Time Status RT Post Treatment Assessment [RC] Click to Edit Care 07/26/20 16:20 Active CULTURE STREP A CONFIRMATION [] Stat Lab 07/27/20 09:16 Results STREP SCRN A RAPID W CULT CONF [] Stat Lab 07/27/20 09:16 Results Acetaminophen [TylenoL] Med 07/26/20 20:38 Active 650 mg PO Q4H PRN Albuterol [Ventolin HFA] Med 07/26/20 16:18 Active 0 gm INH Q4H PRN Ferrous Sulfate Med 07/27/20 09:17 Active 325 mg PO WITHBREAKFAST NS + KCl 20mEq/L [Normal Saline with 20 mEq KCl] 1,000 Med 07/26/20 12:00 Active ml IV ASDIRECTED Medication Orders Acetaminophen (Tylenol) 650 mg PO Q4H PRN PRN Reason: Fever Last Admin: 07/27/20 03:00 Dose: 650 mg Documented by: Admin: 07/26/20 20:59 Dose: 650 mg Documented by: KISHAN Albuterol (Ventolin Hfa) 0 gm INH Q4H PRN PRN Reason: Cough Alprazolam (Xanax) 0.25 mg PO DAILY PRN PRN Reason: Anxiety Last Admin: 07/26/20 00:42 Dose: 0.25 mg Documented by: RAISSA Bandage/Support Products ( Nasal Complaint Manager) 1 applic NASBOTH BID [facility] Stop: 08/01/20 21:01 Last Admin: 07/27/20 08:48 Dose: 1 swab Documented by: Admin: 07/26/20 20:28 Dose: 1 swab Documented by: Admin: 07/26/20 12:27 Dose: 1 swab Documented by: LUZ Cetirizine HCl (Zyrtec) 10 mg PO DAILY [facility] Last Admin: 07/27/20 08:48 Dose: 10 mg Documented by: Admin: 07/26/20 09:58 Dose: 10 mg Documented by: LUZ Cholecalciferol (Vitamin D3) 25 mcg PO DAILY [facility] Last Admin: 07/27/20 08:48 Dose: 25 mcg Documented by: Admin: 07/26/20 09:58 Dose: 25 mcg Documented by: LUZ Docusate Sodium (Colace) 100 mg PO BID [facility] Last Admin: 07/27/20 08:48 Dose: 100 mg Documented by: Admin: 07/26/20 20:33 Dose: Not Given Documented by: Admin: 07/26/20 10:07 Dose: Not Given Documented by: LUZ Enoxaparin Sodium (Lovenox) 30 mg SUBCUT Q24H [facility] Last Admin: 07/27/20 08:47 Dose: 30 mg Documented by: Admin: 07/26/20 09:57 Dose: 30 mg Documented by: LUZ Ferrous Sulfate (Ferrous Sulfate) 325 mg PO WITHBREAKFAST [facility] Last Admin: 07/27/20 09:44 Dose: 325 mg Documented by: CHAITANYA Gabapentin (Neurontin) 400 mg PO TID [facility] Last Admin: 07/27/20 08:48 Dose: 400 mg Documented by: Admin: 07/26/20 20:28 Dose: 400 mg Documented by: Admin: 07/26/20 15:09 Dose: 400 mg Documented by: Admin: 07/26/20 09:57 Dose: 400 mg Documented by: LUZ Hydromorphone HCl (Dilaudid) 0.5 mg IVPUSH Q2H PRN PRN Reason: Pain Potassium Chloride/Sodium Chloride (Normal Saline With 20 Meq Kcl) 1,000 mls @ 50 mls/hr IV ASDIRECTED [facility] Admin: 07/27/20 08:51 Dose: 50 mls/hr Documented by: Infusion: 07/27/20 08:24 Dose: 50 mls/hr Documented by: Admin: 07/26/20 12:24 Dose: 50 mls/hr Documented by: LUZ Metoclopramide HCl (Reglan) 10 mg IV Q6H PRN PRN Reason: Nausea/Vomiting Last Admin: 07/25/20 16:06 Dose: 10 mg Documented by: GETACHEW Metoprolol Succinate (Toprol Xl) 25 mg PO BID [facility] Admin: 07/27/20 08:53 Dose: Not Given Documented by: Admin: 07/26/20 20:29 Dose: Not Given Documented by: Admin: 07/26/20 09:20 Dose: Not Given Documented by: Admin: 07/25/20 20:50 Dose: Not Given Documented by: Admin: 07/25/20 18:09 Dose: 25 mg Documented by: LUZ Ondansetron HCl (Zofran) 4 mg IVPUSH Q6H PRN PRN Reason: Nausea/Vomiting Last Admin: 07/26/20 20:29 Dose: 4 mg Documented by: Admin: 07/26/20 09:55 Dose: 4 mg Documented by: Admin: 07/25/20 15:30 Dose: 4 mg Documented by: LUZ Temazepam (Restoril) 15 mg PO BEDTIME PRN PRN Reason: Insomnia Last Admin: 07/25/20 22:39 Dose: 15 mg Documented by: RAISSA Tizanidine HCl (Zanaflex) 4 mg PO DAILY [facility] Last Admin: 07/27/20 08:48 Dose: 4 mg Documented by: Admin: 07/26/20 10:06 Dose: 4 mg Documented by: Admin: 07/25/20 17:26 Dose: 4 mg Documented by: LUZ Tramadol HCl (Ultram) 50 mg PO Q4H PRN PRN Reason: Pain (mild 1-3) Last Admin: 07/26/20 20:29 Dose: 50 mg Documented by: Admin: 07/26/20 15:09 Dose: 50 mg Documented by: Admin: 07/26/20 08:05 Dose: 50 mg Documented by: LUZ - Assessment Assessment (Free Text/Narrative):: Tolerated procedure without complications, Has been up in chair today, switched over to Tramadol for pain, controlling pain fairly well, difficulty with mobility and transfers in/out of bed as expected, also reports pain in coccyx area from immobility which she has has in the past - Plan Plan (Free Text/Narrative):: Continue PT/OT with NATTY d/c [place] on AM, discharge planning for SNF
--- NOTE | 2020-07-27 13:34 | PCM.PN ---
- General Info Date of Service: 07/27/20 Subjective Update: Pain has improved. Having a sore throat. - Review of Systems General: Reports: Weakness HEENT: Reports: Sore Throat Pulmonary: Reports: Shortness of Breath Cardiovascular: Reports: No Symptoms Gastrointestinal: Reports: No Symptoms Genitourinary: Reports: No Symptoms Musculoskeletal: Reports: Joint Pain Skin: Reports: No Symptoms Neurological: Reports: Difficulty Walking, Weakness Psychiatric: Reports: Anxiety - Patient Data Vitals - Most Recent: Last Vital Signs Temp 98.6 F 07/27/20 12:29 Pulse 70 07/27/20 12:29 Resp 18 07/27/20 12:29 BP 116/65 07/27/20 12:29 Pulse Ox 100 07/27/20 12:29 Orthostatic Blood Pressure [ 121/64 Supine] Orthostatic Blood Pressure [ 119/62 Sitting] Orthostatic Blood Pressure [ 83/59 Standing] Weight - Most Recent: 140 lb I&O - Last 24 Hours: Intake & Output 07/26/20 07/27/20 07/27/20 22:59 06:59 14:59 Intake Total 953 958 500 Output Total 475 900 700 Balance 478 58 -200 Lab Results Last 24 Hours: Laboratory Results - last 24 hr 07/27/20 07/27/20 Range/Units 05:52 05:52 WBC 3.4 L (4.5-11.0) K/uL RBC 2.42 L (3.30-5.50) M/uL Hgb 7.4 L (12.0-15.0) g/dL Hct 23.0 L (36.0-48.0) % MCV 95 (80-98) fL MCH 31 (27-31) pg MCHC 32 (32-36) % Plt Count 98 L (150-400) K/uL Neut % (Auto) 70 H (36-66) % Lymph % (Auto) 17 L (24-44) % [place] % (Auto) 11 H (2-6) % Eos % (Auto) 2 (2-4) % Baso % (Auto) 0 (0-1) % Sodium 131 L (140-148) mmol/L Potassium 4.2 (3.6-5.2) mmol/L Chloride 99 L (100-108) mmol/L Carbon Dioxide 27 (21-32) mmol/L Anion Gap 9.2 (5.0-14.0) mmol/L BUN 14 (7-18) mg/dL Creatinine 1.1 H (0.6-1.0) mg/dL Est Cr Clr Drug Dosing 38.17 mL/min Estimated GFR (MDRD) 47 L (>60) Glucose 99 (74-106) mg/dL Calcium 7.5 L (8.5-10.1) mg/dL Magnesium 2.9 H D (1.8-2.4) mg/dL Total Bilirubin 0.3 (0.2-1.0) mg/dL AST 31 (15-37) U/L ALT 20 (12-78) U/L Alkaline Phosphatase 61 (46-116) U/L Total Protein 5.3 L (6.4-8.2) g/dL Albumin 2.2 L (3.4-5.0) g/dL Globulin 3.1 (2.3-3.5) g/dL Albumin/Globulin Ratio 0.7 L (1.2-2.2) Bert Results Last 24 Hours: Microbiology 07/27/20 09:16 Group A Streptococcus Rapid Screen - Final Throat NEGATIVE STREP A SCREEN REFERENCE RANGE: NEGATIVE Med Orders - Current: Current Medications Acetaminophen (Tylenol) 650 mg PO Q4H PRN PRN Reason: Fever Last Admin: 07/27/20 03:00 Dose: 650 mg Documented by: Albuterol (Ventolin Hfa) 0 gm INH Q4H PRN PRN Reason: Cough Alprazolam (Xanax) 0.25 mg PO DAILY PRN PRN Reason: Anxiety Last Admin: 07/26/20 00:42 Dose: 0.25 mg Documented by: Bandage/Support Products ( Nasal Publication Designer) 1 applic NASBOTH BID [facility] Stop: 08/01/20 21:01 Last Admin: 07/27/20 08:48 Dose: 1 swab Documented by: Cetirizine HCl (Zyrtec) 10 mg PO DAILY [facility] Last Admin: 07/27/20 08:48 Dose: 10 mg Documented by: Cholecalciferol (Vitamin D3) 25 mcg PO DAILY [facility] Last Admin: 07/27/20 08:48 Dose: 25 mcg Documented by: Docusate Sodium (Colace) 100 mg PO BID [facility] Last Admin: 07/27/20 08:48 Dose: 100 mg Documented by: Enoxaparin Sodium (Lovenox) 30 mg SUBCUT Q24H [facility] Last Admin: 07/27/20 08:47 Dose: 30 mg Documented by: Ferrous Sulfate (Ferrous Sulfate) 325 mg PO WITHBREAKFAST [facility] Last Admin: 07/27/20 09:44 Dose: 325 mg Documented by: Gabapentin (Neurontin) 400 mg PO TID [facility] Last Admin: 07/27/20 08:48 Dose: 400 mg Documented by: Hydromorphone HCl (Dilaudid) 0.5 mg IVPUSH Q2H PRN PRN Reason: Pain Potassium Chloride/Sodium Chloride (Normal Saline With 20 Meq Kcl) 1,000 mls @ 50 mls/hr IV ASDIRECTED [facility] Last Admin: 07/27/20 08:51 Dose: 50 mls/hr Documented by: Metoclopramide HCl (Reglan) 10 mg IV Q6H PRN PRN Reason: Nausea/Vomiting Last Admin: 07/25/20 16:06 Dose: 10 mg Documented by: Metoprolol Succinate (Toprol Xl) 25 mg PO BID [facility] Last Admin: 07/27/20 08:53 Dose: Not Given Documented by: Ondansetron HCl (Zofran) 4 mg IVPUSH Q6H PRN PRN Reason: Nausea/Vomiting Last Admin: 07/26/20 20:29 Dose: 4 mg Documented by: Temazepam (Restoril) 15 mg PO BEDTIME PRN PRN Reason: Insomnia Last Admin: 07/25/20 22:39 Dose: 15 mg Documented by: Tizanidine HCl (Zanaflex) 4 mg PO DAILY [facility] Last Admin: 07/27/20 08:48 Dose: 4 mg Documented by: Tramadol HCl (Ultram) 50 mg PO Q4H PRN PRN Reason: Pain (mild 1-3) Last Admin: 07/26/20 20:29 Dose: 50 mg Documented by: Discontinued Medications Ephedrine Sulfate (Ephedrine Sulfate) 50 mg .ROUTE .STK-MED ONE Stop: 07/25/20 13:01 Fentanyl (Sublimaze) Confirm Administered Dose 100 mcg .ROUTE .STK-MED ONE Stop: 07/25/20 11:04 Gabapentin (Neurontin) 300 mg PO BID [facility] Last Admin: 07/25/20 20:48 Dose: 300 mg Documented by: Hydromorphone HCl (Dilaudid Job Service Specialist 15 Mg In Ns 30 Ml) Confirm Administered Dose 15 mg IV .STK-MED ONE Stop: 07/25/20 08:06 Last Admin: 07/25/20 08:12 Dose: 15 mg Documented by: Hydromorphone HCl (Dilaudid Job Service Specialist 15 Mg In Ns 30 Ml) 0 mg IV ASDIRECTED PRN; Protocol PRN 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 Last Admin: 07/25/20 09:39 Dose: 15 mg Documented by: Sodium Chloride (Normal Saline) 1,000 mls @ 999 mls/hr IV ASDIRECTED [facility] Dextrose/Sodium Chloride (Dextrose 5%-Normal Saline) 1,000 mls @ 25 mls/hr IV ASDIRECTED [facility] Last Admin: 07/25/20 04:53 Dose: 25 mls/hr Documented by: Cefazolin Sodium/Dextrose 2 gm (/ Premix) 50 mls @ 100 mls/hr IV ONETIME ONE Stop: 07/25/20 10:59 Last Admin: 07/25/20 12:38 Dose: 100 mls/hr Documented by: Cefazolin Sodium/Dextrose 1 gm (/ Premix) 50 mls @ 100 mls/hr IV Q8H [facility] Stop: 07/26/20 12:29 Last Admin: 07/26/20 12:09 Dose: 100 mls/hr Documented by: Dextrose/Sodium Chloride (Dextrose 5%-1/2 Ns) 1,000 mls @ 100 mls/hr IV ASDIRECTED [facility] Last Admin: 07/25/20 17:30 Dose: 100 mls/hr Documented by: Magnesium Sulfate 2 gm/ Premix 50 mls @ 25 mls/hr IV Q6H [facility] Stop: 07/27/20 01:59 Last Admin: 07/26/20 23:41 Dose: 25 mls/hr Documented by: Midazolam HCl (Versed 1 Mg/Ml) Confirm Administered Dose 2 mg .ROUTE .STK-MED ONE Stop: 07/25/20 11:05 Naloxone HCl (Narcan) 0.1 mg IV ASDIRECTED PRN PRN Reason: decreased respiratory rate Povidone Iodine (Betadine 10% Soln) Confirm Administered Dose 1 ml .ROUTE .STK- MED ONE Stop: 07/25/20 13:34 Last Admin: 07/25/20 13:58 Dose: 40 ml Documented by: Propofol (Diprivan 20 Ml) Confirm Administered Dose 200 mg .ROUTE .STK-MED ONE Stop: 07/25/20 11:04 - Exam General: Alert, Oriented HEENT: Pupils Equal, Pupils Reactive, EOMI, Mucous Membr. Moist/[place] Neck: Supple Lungs: Clear to Auscultation, Normal Respiratory Effort Cardiovascular: Regular Rate, Regular Rhythm Extremities: Normal Inspection, Normal Range of Motion, Non-Tender, No Pedal Edema, Normal Capillary Refill Peripheral Pulses: 1+: Radial (L), Radial (R) Skin: Warm, Dry, Intact Wound/Incisions: Healing Well Psy/Mental Status: Alert, Normal Affect, Normal Mood Sepsis Event Note - Evaluation Sepsis Screening Result: No Definite Risk - Focused Exam Vital Signs: Vital Signs Temp Temp Pulse Resp BP BP Pulse Ox 07/27/20 12:29 98.6 F 70 18 116/65 100 07/27/20 09:56 99 07/27/20 08:53 106/48 L 07/27/20 07:42 98.5 F 45 L 18 106/48 L 92 L 07/27/20 07:00 100 07/27/20 02:52 98.7 F 68 16 114/52 L 98 07/27/20 01:33 99 - Problem List Review Problem List Initiated/Reviewed/Updated: Yes - My Orders Last 24 Hours: My Active Orders 07/26/20 16:18 Albuterol [Ventolin HFA] 0 gm INH Q4H PRN 07/26/20 16:20 RT Post Treatment Assessment [RC] Click to Edit 07/26/20 20:38 Acetaminophen [TylenoL] 650 mg PO Q4H PRN 07/27/20 09:16 CULTURE STREP A CONFIRMATION [RM] Stat STREP SCRN A RAPID W CULT CONF [RM] Stat 07/27/20 09:17 Ferrous Sulfate 325 mg PO WITHBREAKFAST - Plan Plan:: Assessment/Plan: #1. Fracture of left hip. She is S/P hip repair and having pain in the joint. She was complaining of a sore throat but no fever. Strep test was negative. #2. Covid-19 positive #3. History of IBS: Stable #4. HTN: elevated now secondary to pain. BP good control. #5. Gout: Stable labs today WBC 3.4 Hb. 7.4 from 9.1 yesterday.PLT diwn ti 98 frin 156 yesterday. Na 131 K 4.2. Mg up to 2.9 Alb and protein 5.3. Liver functions normal. Plan would be to go to the [place] tomorrow at [facility] tomorrow if stable. HB repeated tomorrow and do a retic count today.
[2020-07-28] MEDS: Ferrous Sulfate 325 MG Tab PO SCH (07:33)
[2020-07-28] MEDS: Enoxaparin 30 MG/0.3 ML Syringe SUBCUT SCH (07:33)
--- NOTE | 2020-07-28 08:26 | PCM.PN ---
- General Info Date of Service: 07/28/20 Functional Status: Reports: Pain Controlled - Review of Systems General: Reports: Weakness, Fatigue HEENT: Reports: No Symptoms Pulmonary: Reports: No Symptoms Cardiovascular: Reports: No Symptoms Gastrointestinal: Reports: No Symptoms Genitourinary: Reports: No Symptoms Musculoskeletal: Reports: No Symptoms Skin: Reports: No Symptoms Neurological: Reports: Difficulty Walking, Weakness, Gait Disturbance Psychiatric: Reports: Anxiety - Patient Data Vitals - Most Recent: Last Vital Signs Temp 100.6 F 07/28/20 07:00 Pulse 85 07/28/20 07:00 Resp 16 07/28/20 07:00 BP 111/53 L 07/28/20 07:00 Pulse Ox 93 L 07/28/20 07:38 Orthostatic Blood Pressure [ 121/64 Supine] Orthostatic Blood Pressure [ 119/62 Sitting] Orthostatic Blood Pressure [ 83/59 Standing] Weight - Most Recent: 140 lb I&O - Last 24 Hours: Intake & Output 07/27/20 07/28/20 07/28/20 22:59 06:59 14:59 Intake Total 500 296 Balance 500 296 Lab Results Last 24 Hours: Laboratory Results - last 24 hr 07/27/20 07/28/20 07/28/20 Range/Units 05:51 04:20 04:20 WBC 3.7 L (4.5-11.0) K/uL RBC 2.36 L (3.30-5.50) M/uL Hgb 7.2 L (12.0-15.0) g/dL Hct 22.6 L (36.0-48.0) % MCV 96 (80-98) fL MCH 31 (27-31) pg MCHC 32 (32-36) % Plt Count 105 L (150-400) K/uL Neut % (Auto) 75 H (36-66) % Lymph % (Auto) 15 L (24-44) % [place] % (Auto) 9 H (2-6) % Eos % (Auto) 1 L (2-4) % Baso % (Auto) 0 (0-1) % Percent Retic 0.7 (0.5-1.5) % Sodium 132 L (140-148) mmol/L Potassium 4.1 (3.6-5.2) mmol/L Chloride 100 (100-108) mmol/L Carbon Dioxide 25 (21-32) mmol/L Anion Gap 11.1 (5.0-14.0) mmol/L BUN 20 H (7-18) mg/dL Creatinine 1.0 (0.6-1.0) mg/dL Est Cr Clr Drug Dosing 41.98 mL/min Estimated GFR (MDRD) 53 L (>60) Glucose 89 (74-106) mg/dL Calcium 7.6 L (8.5-10.1) mg/dL Total Bilirubin 0.3 (0.2-1.0) mg/dL AST 36 (15-37) U/L ALT 23 (12-78) U/L Alkaline Phosphatase 61 (46-116) U/L Total Protein 5.2 L (6.4-8.2) g/dL Albumin 2.0 L (3.4-5.0) g/dL Globulin 3.2 (2.3-3.5) g/dL Albumin/Globulin Ratio 0.6 L (1.2-2.2) Bert Results Last 24 Hours: Microbiology 07/27/20 09:16 Quick Strep Confirmation Culture - Preliminary Throat NO GROUP A STREP ISOLATED REFERENCE RANGE: NEGATIVE Group A Streptococcus Rapid Screen - Final NEGATIVE STREP A SCREEN REFERENCE RANGE: NEGATIVE Med Orders - Current: Current Medications Acetaminophen (Tylenol) 650 mg PO Q4H PRN PRN Reason: Fever Last Admin: 07/27/20 20:42 Dose: 650 mg Documented by: Albuterol (Ventolin Hfa) 0 gm INH Q4H PRN PRN Reason: Cough Alprazolam (Xanax) 0.25 mg PO DAILY PRN PRN Reason: Anxiety Last Admin: 07/26/20 00:42 Dose: 0.25 mg Documented by: Bandage/Support Products ( Nasal Junior Account Executive) 1 applic NASBOTH BID [facility] Stop: 08/01/20 21:01 Last Admin: 07/27/20 20:42 Dose: 1 swab Documented by: Cetirizine HCl (Zyrtec) 10 mg PO DAILY [facility] Last Admin: 07/27/20 08:48 Dose: 10 mg Documented by: Cholecalciferol (Vitamin D3) 25 mcg PO DAILY [facility] Last Admin: 07/27/20 08:48 Dose: 25 mcg Documented by: Docusate Sodium (Colace) 100 mg PO BID [facility] Last Admin: 07/27/20 20:16 Dose: Not Given Documented by: Enoxaparin Sodium (Lovenox) 30 mg SUBCUT Q24H [facility] Last Admin: 07/28/20 07:33 Dose: 30 mg Documented by: Ferrous Sulfate (Ferrous Sulfate) 325 mg PO WITHBREAKFAST [facility] Last Admin: 07/28/20 07:33 Dose: 325 mg Documented by: Gabapentin (Neurontin) 400 mg PO TID [facility] Last Admin: 07/27/20 20:40 Dose: 400 mg Documented by: Hydromorphone HCl (Dilaudid) 0.5 mg IVPUSH Q2H PRN PRN Reason: Pain Potassium Chloride/Sodium Chloride (Normal Saline With 20 Meq Kcl) 1,000 mls @ 50 mls/hr IV ASDIRECTED [facility] Last Admin: 07/27/20 08:51 Dose: 50 mls/hr Documented by: Metoclopramide HCl (Reglan) 10 mg IV Q6H PRN PRN Reason: Nausea/Vomiting Last Admin: 07/25/20 16:06 Dose: 10 mg Documented by: Metoprolol Succinate (Toprol Xl) 25 mg PO BID [facility] Last Admin: 07/27/20 20:16 Dose: Not Given Documented by: Ondansetron HCl (Zofran) 4 mg IVPUSH Q6H PRN PRN Reason: Nausea/Vomiting Last Admin: 07/26/20 20:29 Dose: 4 mg Documented by: Temazepam (Restoril) 15 mg PO BEDTIME PRN PRN Reason: Insomnia Last Admin: 07/25/20 22:39 Dose: 15 mg Documented by: Tizanidine HCl (Zanaflex) 4 mg PO DAILY [facility] Last Admin: 07/27/20 08:48 Dose: 4 mg Documented by: Tramadol HCl (Ultram) 50 mg PO Q4H PRN PRN Reason: Pain (mild 1-3) Last Admin: 07/26/20 20:29 Dose: 50 mg Documented by: Discontinued Medications Ephedrine Sulfate (Ephedrine Sulfate) 50 mg .ROUTE .STK-MED ONE Stop: 07/25/20 13:01 Fentanyl (Sublimaze) Confirm Administered Dose 100 mcg .ROUTE .STK-MED ONE Stop: 07/25/20 11:04 Gabapentin (Neurontin) 300 mg PO BID [facility] Last Admin: 07/25/20 20:48 Dose: 300 mg Documented by: Hydromorphone HCl (Dilaudid Silk Brusher 15 Mg In Ns 30 Ml) Confirm Administered Dose 15 mg IV .STK-MED ONE Stop: 07/25/20 08:06 Last Admin: 07/25/20 08:12 Dose: 15 mg Documented by: Hydromorphone HCl (Dilaudid Silk Brusher 15 Mg In Ns 30 Ml) 0 mg IV ASDIRECTED PRN; Protocol 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 Last Admin: 07/25/20 09:39 Dose: 15 mg Documented by: Sodium Chloride (Normal Saline) 1,000 mls @ 999 mls/hr IV ASDIRECTED [facility] Dextrose/Sodium Chloride (Dextrose 5%-Normal Saline) 1,000 mls @ 25 mls/hr IV ASDIRECTED [facility] Last Admin: 07/25/20 04:53 Dose: 25 mls/hr Documented by: Cefazolin Sodium/Dextrose 2 gm (/ Premix) 50 mls @ 100 mls/hr IV ONETIME ONE Stop: 07/25/20 10:59 Last Admin: 07/25/20 12:38 Dose: 100 mls/hr Documented by: Cefazolin Sodium/Dextrose 1 gm (/ Premix) 50 mls @ 100 mls/hr IV Q8H [facility] Stop: 07/26/20 12:29 Last Admin: 07/26/20 12:09 Dose: 100 mls/hr Documented by: Dextrose/Sodium Chloride (Dextrose 5%-1/2 Ns) 1,000 mls @ 100 mls/hr IV ASDIRECTED [facility] Last Admin: 07/25/20 17:30 Dose: 100 mls/hr Documented by: Magnesium Sulfate 2 gm/ Premix 50 mls @ 25 mls/hr IV Q6H [facility] Stop: 07/27/20 01:59 Last Admin: 07/26/20 23:41 Dose: 25 mls/hr Documented by: Midazolam HCl (Versed 1 Mg/Ml) Confirm Administered Dose 2 mg .ROUTE .STK-MED ONE Stop: 07/25/20 11:05 Naloxone HCl (Narcan) 0.1 mg IV ASDIRECTED PRN PRN Reason: decreased respiratory rate Povidone Iodine (Betadine 10% Soln) Confirm Administered Dose 1 ml .ROUTE .STK- MED ONE Stop: 07/25/20 13:34 Last Admin: 07/25/20 13:58 Dose: 40 ml Documented by: Propofol (Diprivan 20 Ml) Confirm Administered Dose 200 mg .ROUTE .STK-MED ONE Stop: 07/25/20 11:04 - Exam General: Alert, Oriented, Cooperative, Mild Distress HEENT: Pupils Equal, Pupils Reactive, EOMI, Mucous Membr. Moist/[place] Neck: Supple Lungs: Clear to Auscultation, Normal Respiratory Effort Cardiovascular: Regular Rate, Regular Rhythm GI/Abdominal Exam: Normal Bowel Sounds, Soft, Non-Tender, No Organomegaly, No Distention, No Abnormal Bruit, No Mass, Pelvis Stable Extremities: Normal Inspection, Normal Range of Motion, Non-Tender, No Pedal Edema, Normal Capillary Refill Peripheral Pulses: 1+: Radial (L), Radial (R) Skin: Warm, Dry, Intact Wound/Incisions: Healing Well Neurological: No New Focal Deficit Psy/Mental Status: Alert, Anxious Sepsis Event Note - Evaluation Sepsis Screening Result: No Definite Risk - Focused Exam Vital Signs: Vital Signs Temp Temp Pulse Resp BP Pulse Ox 07/28/20 07:38 93 L 07/28/20 07:33 98 07/28/20 07:00 100.6 F 85 16 111/53 L 99 07/28/20 03:59 100.6 F 87 18 102/66 98 07/28/20 01:00 98 07/27/20 22:20 100.6 F 80 18 95/62 98 07/27/20 21:12 100.0 F 07/27/20 20:42 100.4 F - Problem List Review Problem List Initiated/Reviewed/Updated: Yes - My Orders Last 24 Hours: My Active Orders 07/27/20 09:16 CULTURE STREP A CONFIRMATION [] Stat STREP SCRN A RAPID W CULT CONF [RM] Stat 07/27/20 09:17 Ferrous Sulfate 325 mg PO WITHBREAKFAST 07/28/20 08:19 RED BLOOD CELLS LP [BBK] Routine TYPE AND SCREEN [BBK] Routine - Plan Plan:: Assessment/Plan: #1. Fracture of left hip. She is S/P hip repair and having pain in the joint. #2. Covid-19 positive #3. History of IBS: Stable #4. HTN: elevated now secondary to pain. BP good control. #5. Gout: Stable labs today WBC 3.7. Temp 100.6 Hb. 7.2 from 7.4 yesterday and retic count 0.7. I will give 2 units of PC today then discharge to the [facility]. PLT 105 from 98 yesterday. Na 132 K 4.1. Liver functions normal. Plan would be to go to the [place] today at [facility] after 2 units given.
--- NOTE | 2020-07-28 08:38 | PCM.DCSUM1 ---
Discharge Summary - Hospital Course HPI Initial Comments: She is feeling weak with minimal energy and having fatigue. Pain is controlled. Brief History: She became dizzy and fell at home and fractured her left hip. Before admission she was found to be positive for the Galo virus and adnitted to the Covid unit. Diagnosis: Stroke: No - Discharge Data Discharge Date: 07/28/20 Discharge Disposition: DC/[facility] to [facility] Condition: Good - Referral to Home Health Primary Care Physician: PCP None - Patient Summary/Data Operative Procedure(s) Performed: Hip surgery after fracture of the left hp Complications: Covid-19 positive Consults: Consultations 07/25/20 03:06 Consult to Orthopedics [CONS] Routine Consulting Provider: Salo Hollins Call Completed to Consulting Physician: Cheyanne 07/25/20 14:38 Consult to Physical Therapy [PT Evaluation and Treatment] [CONS] Routine Please Evaluate and Treat. PT Reason for Consult: Post op Ortho Surgery Pending Discharge: Yes Discharge Disposition: Group Home Facility Special Instructions: Left hip WBAT, posterior hip precautions This query below is only for informational purposes and is not editable. Admission Diagnosis/Problem: Hip fracture requiring operative repair 07/25/20 14:39 Consult to Occupational Therapy [OT Evaluation and Treatment] [CONS] Routine Please Evaluate and Treat. OT Reason for Consult: ADL's Pending Discharge: Yes Discharge Disposition: Group Home Facility Special Instructions: ADLs and adaptive devices This query below is only for informational purposes and is not editable. 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 She came to the hospital and was found to be positive for covid-19. She was admitted and had a new hip placed. She did run a fever while in the hospital and had also anemia at the time of discharge of 7.2. 2 units of pac cells were given before discharge. She is being transferred to [facility] for continued care. - Patient Instructions Diet: Heart Healthy Diet Activity: As Tolerated - Discharge Plan *PRESCRIPTION DRUG MONITORING PROGRAM REVIEWED*: No Prescriptions/Med Rec: Gabapentin [Neurontin] 400 mg PO TID #90 capsule ALPRAZolam [Xanax] 0.25 mg PO DAILY PRN #30 tablet PRN Reason: Anxiety Home Medications: Home Meds traMADol HCl [Tramadol HCl] 25 mg PO DAILY 11/01/17 [History] Metoprolol Succinate [Toprol Xl] 25 mg PO BID 12/23/17 [History] ALPRAZolam [Alprazolam] 0.25 mg PO ASDIRECTED 11/10/19 [History] Cetirizine [ZyrTEC] 10 mg PO DAILY 11/10/19 [History] Triazolam 0.25 mg PO BEDTIME PRN 11/10/19 [History] tiZANidine [Zanaflex] 4 mg PO DAILY 11/10/19 [History] Cholecalciferol (Vitamin D3) [Vitamin D3] 1,000 unit PO DAILY 07/25/20 [History] ALPRAZolam [Xanax] 0.25 mg PO DAILY PRN #30 tablet 07/28/20 [Rx] Acetaminophen [Tylenol] 650 mg PO Q4H PRN tablet 07/28/20 [Rx] Albuterol [Ventolin HFA] 0 gm INH Q4H PRN inhaler 07/28/20 [Rx] Enoxaparin [Lovenox] 30 mg SUBCUT Q24H syringe 07/28/20 [Rx] Ferrous Sulfate 325 mg PO WITHBREAKFAST tablet 07/28/20 [Rx] Gabapentin [Neurontin] 400 mg PO TID #90 capsule 07/28/20 [Rx] tiZANidine [Zanaflex] 4 mg PO DAILY tablet 07/28/20 [Rx] traMADol [Ultram] 50 mg PO Q4H PRN tablet 07/28/20 [Rx] Forms: ED Department Discharge Referrals: PCP,None [Primary Care Provider] - - Discharge Summary/Plan Comment DC Time >30 min.: Yes Discharge Summary/Plan Comment: Assessment/Plan: #1. Fracture left hip. repaired and healing #2. Positive for C. Virus #3. HTN: Condition Stable at the present time. #4. Gout: Stable. #5. Anxiety: Chronic and stable continue with Xanax. #6. Anemia: 2 units of PC given the day of discharge to the NH Will be transferred to the NH post transfusion. - General Info Functional Status: Reports: Pain Controlled - Review of Systems General: Reports: Weakness HEENT: Reports: No Symptoms Pulmonary: Reports: No Symptoms Cardiovascular: Reports: No Symptoms Gastrointestinal: Reports: No Symptoms Genitourinary: Reports: No Symptoms Musculoskeletal: Reports: Leg Pain, Joint Pain, Joint Swelling Skin: Reports: No Symptoms Psychiatric: Reports: Anxiety - Patient Data Vitals - Most Recent: Last Vital Signs Temp 100.6 F 07/28/20 07:00 Pulse 85 07/28/20 07:00 Resp 16 07/28/20 07:00 BP 111/53 L 07/28/20 07:00 Pulse Ox 93 L 07/28/20 07:38 Orthostatic Blood Pressure [ 121/64 Supine] Orthostatic Blood Pressure [ 119/62 Sitting] Orthostatic Blood Pressure [ 83/59 Standing] Weight - Most Recent: 140 lb I&O - Last 24 hours: Intake & Output 07/27/20 07/28/20 07/28/20 22:59 06:59 14:59 Intake Total 500 296 Balance 500 296 Lab Results - Last 24 hrs: Laboratory Results - last 24 hr 07/27/20 07/28/20 07/28/20 Range/Units 05:51 04:20 04:20 WBC 3.7 L (4.5-11.0) K/uL RBC 2.36 L (3.30-5.50) M/uL Hgb 7.2 L (12.0-15.0) g/dL Hct 22.6 L (36.0-48.0) % MCV 96 (80-98) fL MCH 31 (27-31) pg MCHC 32 (32-36) % Plt Count 105 L (150-400) K/uL Neut % (Auto) 75 H (36-66) % Lymph % (Auto) 15 L (24-44) % [place] % (Auto) 9 H (2-6) % Eos % (Auto) 1 L (2-4) % Baso % (Auto) 0 (0-1) % Percent Retic 0.7 (0.5-1.5) % Sodium 132 L (140-148) mmol/L Potassium 4.1 (3.6-5.2) mmol/L Chloride 100 (100-108) mmol/L Carbon Dioxide 25 (21-32) mmol/L Anion Gap 11.1 (5.0-14.0) mmol/L BUN 20 H (7-18) mg/dL Creatinine 1.0 (0.6-1.0) mg/dL Est Cr Clr Drug Dosing 41.98 mL/min Estimated GFR (MDRD) 53 L (>60) Glucose 89 (74-106) mg/dL Calcium 7.6 L (8.5-10.1) mg/dL Total Bilirubin 0.3 (0.2-1.0) mg/dL AST 36 (15-37) U/L ALT 23 (12-78) U/L Alkaline Phosphatase 61 (46-116) U/L Total Protein 5.2 L (6.4-8.2) g/dL Albumin 2.0 L (3.4-5.0) g/dL Globulin 3.2 (2.3-3.5) g/dL Albumin/Globulin Ratio 0.6 L (1.2-2.2) YAHAIRA Results - Last 24 hrs: Microbiology 07/27/20 09:16 Quick Strep Confirmation Culture - Preliminary Throat NO GROUP A STREP ISOLATED REFERENCE RANGE: NEGATIVE Group A Streptococcus Rapid Screen - Final NEGATIVE STREP A SCREEN REFERENCE RANGE: NEGATIVE Med Orders - Current: Current Medications Acetaminophen (Tylenol) 650 mg PO Q4H PRN PRN Reason: Fever Last Admin: 07/27/20 20:42 Dose: 650 mg Documented by: Albuterol (Ventolin Hfa) 0 gm INH Q4H PRN PRN Reason: Cough Alprazolam (Xanax) 0.25 mg PO DAILY PRN PRN Reason: Anxiety Last Admin: 07/26/20 00:42 Dose: 0.25 mg Documented by: Bandage/Support Products ( Nasal Sales Service Manager) 1 applic NASBOTH BID [facility] Stop: 08/01/20 21:01 Last Admin: 07/27/20 20:42 Dose: 1 swab Documented by: Cetirizine HCl (Zyrtec) 10 mg PO DAILY [facility] Last Admin: 07/27/20 08:48 Dose: 10 mg Documented by: Cholecalciferol (Vitamin D3) 25 mcg PO DAILY [facility] Last Admin: 07/27/20 08:48 Dose: 25 mcg Documented by: Docusate Sodium (Colace) 100 mg PO BID [facility] Last Admin: 07/27/20 20:16 Dose: Not Given Documented by: Enoxaparin Sodium (Lovenox) 30 mg SUBCUT Q24H [facility] Last Admin: 07/28/20 07:33 Dose: 30 mg Documented by: Ferrous Sulfate (Ferrous Sulfate) 325 mg PO WITHBREAKFAST [facility] Last Admin: 07/28/20 07:33 Dose: 325 mg Documented by: Gabapentin (Neurontin) 400 mg PO TID [facility] Last Admin: 07/27/20 20:40 Dose: 400 mg Documented by: Hydromorphone HCl (Dilaudid) 0.5 mg IVPUSH Q2H PRN PRN Reason: Pain Potassium Chloride/Sodium Chloride (Normal Saline With 20 Meq Kcl) 1,000 mls @ 50 mls/hr IV ASDIRECTED [facility] Last Admin: 07/27/20 08:51 Dose: 50 mls/hr Documented by: Metoclopramide HCl (Reglan) 10 mg IV Q6H PRN PRN Reason: Nausea/Vomiting Last Admin: 07/25/20 16:06 Dose: 10 mg Documented by: Metoprolol Succinate (Toprol Xl) 25 mg PO BID [facility] Last Admin: 07/27/20 20:16 Dose: Not Given Documented by: Ondansetron HCl (Zofran) 4 mg IVPUSH Q6H PRN PRN Reason: Nausea/Vomiting Last Admin: 07/26/20 20:29 Dose: 4 mg Documented by: Temazepam (Restoril) 15 mg PO BEDTIME PRN PRN Reason: Insomnia Last Admin: 07/25/20 22:39 Dose: 15 mg Documented by: Tizanidine HCl (Zanaflex) 4 mg PO DAILY [facility] Last Admin: 07/27/20 08:48 Dose: 4 mg Documented by: Tramadol HCl (Ultram) 50 mg PO Q4H PRN PRN Reason: Pain (mild 1-3) Last Admin: 07/26/20 20:29 Dose: 50 mg Documented by: Discontinued Medications Ephedrine Sulfate (Ephedrine Sulfate) 50 mg .ROUTE .STK-MED ONE Stop: 07/25/20 13:01 Fentanyl (Sublimaze) Confirm Administered Dose 100 mcg .ROUTE .STK-MED ONE Stop: 07/25/20 11:04 Gabapentin (Neurontin) 300 mg PO BID [facility] Last Admin: 07/25/20 20:48 Dose: 300 mg Documented by: Hydromorphone HCl (Dilaudid Telemetry Registered Nurse 15 Mg In Ns 30 Ml) Confirm Administered Dose 15 mg IV .STK-MED ONE Stop: 07/25/20 08:06 Last Admin: 07/25/20 08:12 Dose: 15 mg Documented by: Hydromorphone HCl (Dilaudid Telemetry Registered Nurse 15 Mg In Ns 30 Ml) 0 mg IV ASDIRECTED PRN; Protocol PRN Reason: 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[employer]S PAIN CONTROL Last Admin: 07/25/20 09:39 Dose: 15 mg Documented by: Sodium Chloride (Normal Saline) 1,000 mls @ 999 mls/hr IV ASDIRECTED [facility] Dextrose/Sodium Chloride (Dextrose 5%-Normal Saline) 1,000 mls @ 25 mls/hr IV ASDIRECTED [facility] Last Admin: 07/25/20 04:53 Dose: 25 mls/hr Documented by: Cefazolin Sodium/Dextrose 2 gm (/ Premix) 50 mls @ 100 mls/hr IV ONETIME ONE Stop: 07/25/20 10:59 Last Admin: 07/25/20 12:38 Dose: 100 mls/hr Documented by: Cefazolin Sodium/Dextrose 1 gm (/ Premix) 50 mls @ 100 mls/hr IV Q8H [facility] Stop: 07/26/20 12:29 Last Admin: 07/26/20 12:09 Dose: 100 mls/hr Documented by: Dextrose/Sodium Chloride (Dextrose 5%-1/2 Ns) 1,000 mls @ 100 mls/hr IV ASDIRECTED [facility] Last Admin: 07/25/20 17:30 Dose: 100 mls/hr Documented by: Magnesium Sulfate 2 gm/ Premix 50 mls @ 25 mls/hr IV Q6H [facility] Stop: 07/27/20 01:59 Last Admin: 07/26/20 23:41 Dose: 25 mls/hr Documented by: Midazolam HCl (Versed 1 Mg/Ml) Confirm Administered Dose 2 mg .ROUTE .STK-MED ONE Stop: 07/25/20 11:05 Naloxone HCl (Narcan) 0.1 mg IV ASDIRECTED PRN PRN Reason: decreased respiratory rate Povidone Iodine (Betadine 10% Soln) Confirm Administered Dose 1 ml .ROUTE .STK- MED ONE Stop: 07/25/20 13:34 Last Admin: 07/25/20 13:58 Dose: 40 ml Documented by: Propofol (Diprivan 20 Ml) Confirm Administered Dose 200 mg .ROUTE .STK-MED ONE Stop: 07/25/20 11:04 - Exam General: Reports: Alert, Oriented HEENT: Reports: Pupils Equal, Pupils Reactive, EOMI, Mucous Membr. Moist/[place] Neck: Reports: Supple Lungs: Reports: Clear to Auscultation, Normal Respiratory Effort Cardiovascular: Reports: Regular Rate, Regular Rhythm GI/Abdominal Exam: Normal Bowel Sounds, Soft, Non-Tender, No Organomegaly, No Distention, No Abnormal Bruit, No Mass, Pelvis Stable Extremities: Joint Swelling, Leg Pain Psy/Mental Status: Reports: Alert, Anxious Discharge Operative/Procedures - Procedures Performed LP Indication: CSF analysis Arterial Line Indication: hemodynamic monitoring Chest Tube Indication: pneumothorax Thoracentesis Indication: pleural effusion Paracentesis Indication: ascites Operations/Procedure Comment: Left hip replacement
[2020-07-28] MEDS: Docusate Sodium 100 MG Cap PO SCH (08:53)
[2020-07-28] MEDS: Metoprolol Succinate 25 MG Tab.ER PO SCH (08:54)
[2020-07-28] MEDS: Nozin Nasal Sanitizer NASBOTH SCH (08:54)
[2020-07-28] MEDS: Cholecalciferol (Vitamin D3) 25 MCG Tab PO SCH (08:55)
[2020-07-28] MEDS: Gabapentin 400 MG Cap PO SCH ×2 (08:55→14:09)
[2020-07-28] MEDS: Cetirizine 10 MG Tab PO SCH (08:55)
[2020-07-28] MEDS: tiZANidine 4 MG Tab PO SCH (08:55)
[2020-07-28] MEDS: Acetaminophen 325 MG Tab PO PRN (09:00)
--- NOTE | 2020-07-29 21:32 | OR ---
DATE OF PROCEDURE: 07/25/2020 SURGEON: Salo Hollins MD PREOPERATIVE DIAGNOSIS: Displaced left femoral neck fracture. POSTOPERATIVE DIAGNOSIS: Displaced left femoral neck fracture. PROCEDURE: Hemiarthroplasty, left hip using Nighat M/L taper stem size 11 standard 50 mm outer diameter bipolar cup and a -3.5 x 28 mm head. ANESTHESIA: Spinal with sedation. INDICATIONS: Guera is a very pleasant 84-year-old female who sustained a fall in her bathroom resulting in fracture of her left hip. Evaluation in the emergency room revealed a displaced femoral neck fracture. 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 She was taken to the operating room on 07/25 for hemiarthroplasty of the left hip. Risks, benefits, potential complications of the procedure were discussed. PROCEDURE IN DETAIL: After adequate anesthesia was obtained, the patient was placed in a lateral decubitus position and secured with the hip positioner. Left hip and leg were prepped and draped in a sterile fashion. A longitudinal incision was made over the greater trochanter and carried down through the subcutaneous tissues and hemostasis obtained with electrocautery. Tensor fascia and IT band were split in line with the fibers and a Charnley retractor was placed. Leg was internally rotated and the short external rotators taken off the greater trochanter and the fracture hematoma was encountered. Capsule was entered in a T-fashion exposing the femoral neck fracture. Retractor was placed about the femoral neck and an oscillating saw used to resect the fracture. Ratliff elevator was placed into the acetabulum and used to lever the femoral head out of the acetabulum and cut the ligament. Femoral head was then measured and a 50 mm trial was placed into the acetabulum with a good fit. Trial was removed. Attention was returned to the femoral neck. A box osteotome was used to remove the lateral femoral neck cortex. Canal was then hand reamed down the canal and sequentially broached to size 11 stem. Trial reduction was made with the -3.5 neck length, which restored limb length and showed excellent stability. The trials were removed. An 11 standard stem was tapped into position with excellent fill and stability. Trial reduction was again made with the -3.5 neck length and this was selected for the final implant. Head was tapped onto the taper and reduced and again taken through range of motion. This was thoroughly irrigated including irrigation with dilute Betadine solution. The capsule was closed with #2 Ethibond. Tensor fascia was closed in a running locking fashion with #2 Ethibond and skin was closed with 2-0 Vicryl and a running 3-0 Monocryl. Steri-Strips were applied. Sterile dressing was then placed. The patient tolerated the procedure well. There were no complications. She was taken from the operating room in stable condition. Salo Hollins MD /[id number]
== END 2020-07-28 15:15 | DRG 521 ==
LOC: JP.ED 01:59 → JP.MS 03:02 → JP.2SS 05:33
PROVIDERS: ADMIT Internal Medicine; ATTEND Internal Medicine
PROC: 0SRS0JZ Replacement of Left Hip Joint, Femoral Surface with Synthetic Substitute, Open Approach (ICD-10-PCS; principal; 2020-07-25)
PROC: 30233N1 Transfusion of Nonautologous Red Blood Cells into Peripheral Vein, Percutaneous Approach (ICD-10-PCS; 2020-07-28)
DX: S72.002A Fracture of unspecified part of neck of left femur, initial encounter for closed fracture (principal); U07.1 COVID-19; M10.9 Gout, unspecified; I10 Essential (primary) hypertension; J02.0 Streptococcal pharyngitis; J45.998 Other asthma; M54.5 Low back pain; K21.9 Gastro-esophageal reflux disease without esophagitis; H54.7 Unspecified visual loss; M54.9 Dorsalgia, unspecified; G47.00 Insomnia, unspecified; G89.29 Other chronic pain; Z88.8 Allergy status to other drugs, medicaments and biological substances; J45.909 Unspecified asthma, uncomplicated; Z91.02 Food additives allergy status; M19.90 Unspecified osteoarthritis, unspecified site; D64.9 Anemia, unspecified; G47.30 Sleep apnea, unspecified; Z91.011 Allergy to milk products; Z88.5 Allergy status to narcotic agent; Z88.2 Allergy status to sulfonamides; Z88.6 Allergy status to analgesic agent; Z98.49 Cataract extraction status, unspecified eye; Z79.899 Other long term (current) drug therapy; Z90.49 Acquired absence of other specified parts of digestive tract; W19.XXXA Unspecified fall, initial encounter
CPT/HCPCS: 36415; 36430; 71045; 71045-26; 72170; 72170-26; 73502-26-LT; 73502-LT; 80053; 81001; 83735; 85025; 85045; 86850; 86900; 86901; 86920; 86922; 87081; 87880-QW; 93005; 93010; 94762; 97110-GP; 97162-GP; 97530-GP; 97535-GP; 99285-25; A9270-GY; C1776; J0690; J1170; J1650; J2250; J2405; J2704; J2765; J3010; J3475; J3480; J7042; P9016; U0002

== ENCOUNTER 2020-12-18 14:37 | Emergency (ER) | payer MEDICARE ==
--- NOTE | 2020-12-18 15:18 | EDM.PDOC ---
ED HPI GENERAL MEDICAL PROBLEM - General Chief Complaint: Lower Extremity Injury/Pain Stated Complaint: LT FOOT PAIN Time Seen by Provider: 12/18/20 15:05 Source of Information: Reports: Patient History Limitations: Reports: No Limitations - History of Present Illness INITIAL COMMENTS - FREE TEXT/NARRATIVE: 85 yo female dropped a heavy disc onto her toes of the L foot a couple of hrs ago. Was wearing cloth shoes at the time. Here for eval. Onset: Today, Sudden Onset Date: 12/18/20 Onset Time: 13:15 Duration: Hour(s): (2), Constant Location: Reports: Lower Extremity, Left Quality: Reports: Ache Severity: Moderate Improves with: Reports: Rest Worsens with: Reports: Movement Context: Reports: Trauma Associated Symptoms: Reports: No Other Symptoms Treatments WOOD HEEL BACK LINER: Reports: Other (see below) (none) - Related Data Allergies Allergy/AdvReac Type Severity Reaction Status Date / Time sulfamethoxazole Allergy Other Verified 07/25/20 02:00 [From Bactrim] trimethoprim [From Bactrim] Allergy Other Verified 07/25/20 02:00 Antihistamines - Alkylamine AdvReac Confusion Verified 07/25/20 07:08 aspirin AdvReac Abdominal Verified 07/25/20 07:08 Cramps Dairy Products AdvReac Diarrhea Verified 07/25/20 07:08 gluten AdvReac Diarrhea Verified 07/25/20 07:08 hydrocodone AdvReac Confusion Verified 07/25/20 07:08 oxycodone AdvReac Confusion Verified 07/25/20 07:08 Home Meds: Home Meds Metoprolol Succinate [Toprol Xl] 12.5 mg PO BID 12/23/17 [History] Cetirizine [ZyrTEC] 10 mg PO DAILY 11/10/19 [History] Triazolam 0.25 mg PO BEDTIME PRN 11/10/19 [History] tiZANidine [Zanaflex] 4 mg PO DAILY 11/10/19 [History] Cholecalciferol (Vitamin D3) [Vitamin D3] 1,000 unit PO DAILY 07/25/20 [History] ALPRAZolam [Xanax] 0.25 mg PO DAILY PRN #30 tablet 07/28/20 [Rx] Albuterol [Ventolin HFA] 0 gm INH Q4H PRN inhaler 07/28/20 [Rx] Gabapentin [Neurontin] 400 mg PO TID #90 capsule 07/28/20 [Rx] Past Medical History HEENT History: Reports: Cataract, Impaired Vision Other HEENT History: USES CHEATER GLASSES FOR READING, "allergic to the cold" Cardiovascular History: Reports: Hypertension Respiratory History: Reports: Asthma, Bronchitis, Recurrent Other Respiratory History: BRONCHIAL ASTHMA Gastrointestinal History: Reports: Gastritis, GERD, Irritable Bowel Syndrome Other Gastrointestinal History: HAS GASTRITIS WITH WHEAT DAIRY AND SUGAR Genitourinary History: Reports: None DENTAL OFFICE ASSISTANT History: Reports: Musculoskeletal History: Reports: Arthritis, Back Pain, Chronic, Fracture Other Musculoskeletal History: left foot and ankle pain. low back pain. left wrist FX Neurological History: Reports: None Psychiatric History: Reports: Other (See Below) Other Psychiatric History: insomnia Endocrine/Metabolic History: Reports: None Hematologic History: Reports: None Immunologic History: Reports: None Oncologic (Cancer) History: Reports: None Dermatologic History: Reports: None - Infectious Disease History Infectious Disease History: Reports: Shingles - Past Surgical History Head Surgeries/Procedures: Reports: None HEENT Surgical History: Reports: Cataract Surgery Cardiovascular Surgical History: Reports: None Respiratory Surgical History: Reports: None GI Surgical History: Reports: Cholecystectomy, Colonoscopy Neurological Surgical History: Reports: None Musculoskeletal Surgical History: Reports: None, Other (See Below) Other Musculoskeletal Surgeries/Procedures:: s/p L hip Florentino 07/25/20 Oncologic Surgical History: Reports: None Dermatological Surgical History: Reports: Other (See Below) Social & Family History - Family History Family Medical History: No Pertinent Family History - Tobacco Use Tobacco Use Status *Q: Never Tobacco User - Caffeine Use Caffeine Use: Reports: Coffee Review of Systems - Review of Systems Review Of Systems: See Below Constitutional: Reports: No Symptoms Musculoskeletal: Reports: Foot Pain (toes of L foot) Skin: Reports: Change in Color. Denies: Wound Neurological: Reports: No Symptoms ED EXAM, GENERAL - Physical Exam Exam: See Below Exam Limited By: No Limitations General Appearance: Alert, WD/WN, No Apparent Distress Extremities: No Pedal Edema, Limited Range of Motion (of the L toes due to pain, no deformity.), Other (ecchymotic). No: Normal Inspection, Normal Range of Motion, Non-Tender, Pedal Edema Neurological: Alert, Oriented, CN II-XII Intact, Normal Cognition, No Motor/Sensory Deficits Psychiatric: Normal Affect, Normal Mood Skin Exam: Warm, Dry, Intact, No Rash, Ecchymosis (the proximal portion of all of her toes). No: Increased Warmth Course - Vital Signs Last Recorded V/S: Last Vital Signs Temp 37.7 C 12/18/20 15:10 Pulse 67 12/18/20 15:10 Resp 16 12/18/20 15:10 BP 161/80 H 12/18/20 15:10 Pulse Ox 95 12/18/20 15:10 - Orders/Labs/Meds Orders: Active Orders 24 hr Category Date Time Status Foot Comp Min 3V Lt [CR] Stat Exams 12/18/20 15:12 Ordered - Radiology Interpretation Free Text/Narrative:: Toe X-rays of L foot-No fx seen Departure - Departure Time of Disposition: 16:05 Disposition: Home, Self-Care 01 Condition: Good Clinical Impression: Traumatic ecchymosis of toe of left foot Qualifiers: Encounter type: initial encounter Qualified Code(s): S90.122A - Contusion of left lesser toe(s) without damage to nail, initial encounter - Discharge Information *PRESCRIPTION DRUG MONITORING PROGRAM REVIEWED*: No *COPY OF PRESCRIPTION DRUG MONITORING REPORT IN PATIENT KIASER: No Instructions: Foot Contusion, [id number] Referrals: Salo Dale Sr, MD [Primary Care Provider] - Forms: ED Department Discharge Additional Instructions: Add acetaminophen and/or ibuprofen to your current medications. Elevate your foot today. Activity as tolerated. Recheck as needed. Sepsis Event Note (ED) - Evaluation Sepsis Screening Result: No Definite Risk - Focused Exam Vital Signs: Vital Signs Temp Pulse Resp BP Pulse Ox 12/18/20 15:10 37.7 C 67 16 161/80 H 95 12/18/20 15:02 37.7 C 67 16 161/80 H 95 - My Orders Last 24 Hours: My Active Orders 12/18/20 15:12 Foot Comp Min 3V Lt [CR] Stat - Assessment/Plan Last 24 Hours: My Active Orders 12/18/20 15:12 Foot Comp Min 3V Lt [CR] Stat
--- NOTE | 2020-12-19 09:40 | CR ---
Foot Comp Min 3V Lt CLINICAL HISTORY: Trauma FINDINGS: There is some soft tissue swelling over the medial metatarsal region. There is a small calcific or ossific-like density of the distal first metatarsal. This may be related to previous surgery possibly bunionectomy. No acute fracture seen IMPRESSION: Soft tissue swelling No acute fracture
== END 2020-12-18 16:13 | disposition home or self-care (01) ==
LOC: JP.ED 14:37
DX: S90.122A Contusion of left lesser toe(s) without damage to nail, initial encounter (principal); I10 Essential (primary) hypertension; J45.909 Unspecified asthma, uncomplicated; Z88.2 Allergy status to sulfonamides; Z88.1 Allergy status to other antibiotic agents; Z88.8 Allergy status to other drugs, medicaments and biological substances; Z91.018 Allergy to other foods; Z91.011 Allergy to milk products; Z88.5 Allergy status to narcotic agent; Z79.899 Other long term (current) drug therapy; W20.8XXA Other cause of strike by thrown, projected or falling object, initial encounter
CPT/HCPCS: 73630-26-LT; 73630-LT; 99283-25

== ENCOUNTER 2023-01-10 09:06 | Inpatient (IN) | payer MEDICARE ==
[2023-01-10] MEDS ORDERED: Albuterol 90 MCG/6.7 GM Inhaler INH PRN (10:12)
[2023-01-10 10:23] LABS: ESTIMATED GFR 62 mL/min (>60)
[2023-01-10] MEDS: Sodium Chloride 0.9% 1,000 ML IV SCH (10:47)
[2023-01-10] MEDS: Sodium Chloride 0.9% 100 ML with Pantoprazole 80 MG IV SCH ×4 (11:27→20:37)
[2023-01-10] MEDS ORDERED: Propofol 200 MG/20 ML SDV ONE (13:27)
[2023-01-10] MEDS ORDERED: HYDROmorphone 0.5 MG/0.5 ML Syringe IVPUSH ONE (14:01)
[2023-01-10] MEDS ORDERED: ALPRAZolam 0.25 MG Tab PO PRN (16:06)
[2023-01-10] MEDS ORDERED: Pantoprazole 40 MG Tab.CR PO SCH (16:30)
[2023-01-10] MEDS ORDERED: Temazepam 15 MG Cap PO PRN (16:31)
[2023-01-10] MEDS ORDERED: Gabapentin 300 MG Cap PO ONE (16:34)
[2023-01-10] MEDS ORDERED: Gabapentin 400 MG Cap PO ONE (17:00)
[2023-01-10] MEDS: Acetaminophen 325 MG Tab PO PRN (20:34)
[2023-01-10] MEDS: tiZANidine 2 MG Tab PO SCH (20:36)
[2023-01-10] MEDS: Gabapentin 400 MG Cap PO SCH (20:37)
[2023-01-10] MEDS ORDERED: Non-Formulary Medication 1 Each (Tizanidine [Zanaflex] 4 MG Tablet) PO SCH (21:00)
[2023-01-11] MEDS: Sodium Chloride 0.9% 1,000 ML IV SCH ×3 (03:43→22:12)
[2023-01-11] MEDS: Sodium Chloride 0.9% 100 ML with Pantoprazole 80 MG IV SCH ×4 (07:40→17:33)
[2023-01-11] MEDS: Gabapentin 400 MG Cap PO SCH (08:11)
[2023-01-11] MEDS: Cholecalciferol (Vitamin D3) 25 MCG Tab PO SCH (08:11)
[2023-01-11] MEDS: Cetirizine 10 MG Tab PO SCH (08:11)
[2023-01-11] MEDS ORDERED: Non-Formulary Medication 1 Each (Cholecalciferol (Vitamin D3) [Vitamin D3] 1,000 UNIT Caps PO SCH (09:00)
[2023-01-11] MEDS ORDERED: Metoprolol Succinate 50 MG Tab.ER PO SCH (11:30)
[2023-01-11] MEDS: Gabapentin 300 MG Cap PO SCH ×2 (13:59→22:20)
[2023-01-11] MEDS: Acetaminophen 325 MG Tab PO PRN (20:31)
[2023-01-11] MEDS: tiZANidine 2 MG Tab PO SCH (22:21)
[2023-01-12] MEDS: Sodium Chloride 0.9% 100 ML with Pantoprazole 80 MG IV SCH ×4 (03:37→14:35)
[2023-01-12] MEDS: Cholecalciferol (Vitamin D3) 25 MCG Tab PO SCH (08:49)
[2023-01-12] MEDS: Cetirizine 10 MG Tab PO SCH (08:49)
[2023-01-12] MEDS: Gabapentin 300 MG Cap PO SCH ×2 (08:49→14:40)
[2023-01-12] MEDS ORDERED: Metoprolol Succinate 25 MG Tab.ER PO SCH (09:00)
== END 2023-01-12 14:55 | disposition home or self-care (01) | DRG 378 ==
LOC: JP.2SS 09:06
PROVIDERS: ADMIT Internal Medicine; ATTEND Internal Medicine
PROC: 0DJ08ZZ Inspection of Upper Intestinal Tract, Via Natural or Artificial Opening Endoscopic (ICD-10-PCS; principal; 2023-01-10)
PROC: 30233N1 Transfusion of Nonautologous Red Blood Cells into Peripheral Vein, Percutaneous Approach (ICD-10-PCS; 2023-01-10)
DX: K26.4 Chronic or unspecified duodenal ulcer with hemorrhage (principal); D62 Acute posthemorrhagic anemia; I10 Essential (primary) hypertension; M54.50 Low back pain, unspecified; J45.909 Unspecified asthma, uncomplicated; K21.9 Gastro-esophageal reflux disease without esophagitis; M19.90 Unspecified osteoarthritis, unspecified site; G89.29 Other chronic pain; Z96.642 Presence of left artificial hip joint; Z98.890 Other specified postprocedural states; Z98.49 Cataract extraction status, unspecified eye; Z88.5 Allergy status to narcotic agent; Z88.2 Allergy status to sulfonamides; Z88.8 Allergy status to other drugs, medicaments and biological substances; Z88.6 Allergy status to analgesic agent; Z91.011 Allergy to milk products; Z90.49 Acquired absence of other specified parts of digestive tract
CPT/HCPCS: 36415; 36430; 80053; 82272; 85018; 85025; 85027; 86850; 86900; 86901; 86920; 86922; A9270-GY; C9113; J2704; J3490; J7030; P9016; U0002

== ENCOUNTER 2023-04-08 08:36 | Day surgery (SDC) | payer MEDICARE ==
[2023-04-08] MEDS ORDERED: Propofol 200 MG/20 ML SDV ONE (08:44)
[2023-04-08] MEDS ORDERED: Sodium Chloride 0.9% 1,000 ML IV SCH (09:15)
== END 2023-04-08 11:30 | disposition home or self-care (01) ==
LOC: JP.SDS 08:36
PROVIDERS: ATTEND Internal Medicine
DX: D64.9 Anemia, unspecified (principal); K25.9 Gastric ulcer, unspecified as acute or chronic, without hemorrhage or perforation; K58.9 Irritable bowel syndrome, unspecified; I10 Essential (primary) hypertension; E66.9 Obesity, unspecified; M10.9 Gout, unspecified
CPT/HCPCS: 43235; J2704; J7030

== ENCOUNTER 2024-03-11 18:11 | Inpatient (IN) | payer MEDICARE ==
[2024-03-11] MEDS ORDERED: Naloxone 0.4 MG/ML SDV IVPUSH PRN (18:56)
[2024-03-11 19:12] LABS: BASOPHILS PERCENT AUTO 0.2 % (0.1-1.3); EOSINOPHILS PERCENT AUTO 0.1 % (0.0-5.4); HEMATOCRIT 31.4 % (34.3-46.0); HEMOGLOBIN 10.8 g/dL (11.2-15.5); IMMATURE GRAN ABSOLUTE AUTO 0.03 K/uL (0.00-0.23); IMMATURE GRAN PERCENT AUTO 0.3 % (0.0-0.7); LYMPHOCYTES ABSOLUTE AUTO 0.46 K/uL (0.8-3.3); LYMPHOCYTES PERCENT AUTO 4.9 % (11.4-47.7); MEAN CORPUSCULAR HEMOGLOBIN 32.2 pg (31.6-35.5); MEAN CORPUSCULAR HGB CONC 34.4 g/dL (31.6-35.5); MEAN CORPUSCULAR VOLUME 93.7 fL (81.4-99.0); MONOCYTES ABSOLUTE AUTO 0.72 K/uL (0.20-0.90); MONOCYTES PERCENT AUTO 7.6 % (3.3-12.6); NEUTROPHILS ABSOLUTE AUTO 8.22 K/uL (1.0-7.6); NEUTROPHILS PERCENT AUTO 86.9 % (40.0-78.1); PLATELET COUNT,PLT 125 K/uL (130-375); RED BLOOD CELL COUNT 3.35 M/uL (3.77-5.24); WHITE BLOOD CELL COUNT,WBC 9.5 K/uL (3.2-11.0)
[2024-03-11 19:16] LABS: BASOPHILS ABSOLUTE AUTO 0.02 K/uL (0.00-0.10); EOSINOPHILS ABSOLUTE AUTO 0.01 K/uL (0.00-0.40)
[2024-03-11] MEDS: HYDROmorphone 0.5 MG/0.5 ML Syringe IVPUSH ONE ×2 (19:26→21:38)
[2024-03-11] MEDS: Ondansetron 4 MG/2 ML SDV IVPUSH ONE (19:26)
[2024-03-11 19:31] LABS: CALCIUM 9.3 mg/dL (8.5-10.1); EST CRCL DRUG DOSING (CG) 36.2 mL/min; POTASSIUM,K 3.8 mmol/L (3.6-5.2)
[2024-03-11 19:32] LABS: ANION GAP 11.8 mmol/L (5.0-14.0)
[2024-03-11] MEDS: Sodium Chloride 0.9% 1,000 ML IV SCH ×2 (20:43→22:42)
[2024-03-11] MEDS: Prochlorperazine 10 MG/2 ML SDV IVPUSH ONE ×2 (20:43→20:53)
[2024-03-11] MEDS: tiZANidine 2 MG Tab PO PRN (22:41)
[2024-03-11] MEDS: Temazepam 15 MG Cap PO PRN (23:40)
[2024-03-11] MEDS: Gabapentin 300 MG Cap PO SCH (23:40)
[2024-03-12] MEDS: ALPRAZolam 0.25 MG Tab PO PRN (00:47)
[2024-03-12] MEDS: Diazepam 2 MG Tab PO ONE (03:10)
[2024-03-12] MEDS: Diazepam 2 MG Tab ONE (03:27)
[2024-03-12 05:35] LABS: HEMATOCRIT 27.8 % (34.3-46.0); HEMOGLOBIN 9.7 g/dL (11.2-15.5); IMMATURE GRAN ABSOLUTE AUTO 0.03 K/uL (0.00-0.23); IMMATURE GRAN PERCENT AUTO 0.5 % (0.0-0.7); LYMPHOCYTES ABSOLUTE AUTO 0.41 K/uL (0.8-3.3); LYMPHOCYTES PERCENT AUTO 6.8 % (11.4-47.7); MEAN CORPUSCULAR HEMOGLOBIN 32.9 pg (31.6-35.5); MEAN CORPUSCULAR HGB CONC 34.9 g/dL (31.6-35.5); MEAN CORPUSCULAR VOLUME 94.2 fL (81.4-99.0); MONOCYTES ABSOLUTE AUTO 0.56 K/uL (0.20-0.90); MONOCYTES PERCENT AUTO 9.3 % (3.3-12.6); NEUTROPHILS ABSOLUTE AUTO 4.99 K/uL (1.0-7.6); NEUTROPHILS PERCENT AUTO 83.4 % (40.0-78.1); PLATELET COUNT,PLT 100 K/uL (130-375); RED BLOOD CELL COUNT 2.95 M/uL (3.77-5.24)
[2024-03-12 05:49] LABS: INR 1.2; PROTHROMBIN TIME 11.7 sec (9.2-10.6)
[2024-03-12] MEDS: Ondansetron 4 MG/2 ML SDV IVPUSH PRN (05:52)
[2024-03-12] MEDS: HYDROmorphone 0.5 MG/0.5 ML Syringe IVPUSH PRN (05:53)
[2024-03-12 06:06] LABS: A/G RATIO 0.9 (1.2-2.2); ALANINE AMINOTRANSFERASE,ALT 33 U/L (12-78); ALKALINE PHOSPHATASE 67 U/L (46-116); ASPARTATE AMNIOTRANSFERASE,AST 36 U/L (15-37); BILIRUBIN TOTAL 0.6 mg/dL (0.2-1.0); CALCIUM 8.4 mg/dL (8.5-10.1); CARBON DIOXIDE,CO2 26 mmol/L (21-32); CHLORIDE,CL 98 mmol/L (100-108); CREATININE 0.8 mg/dL (0.6-1.0); EST CRCL DRUG DOSING (CG) 45.25 mL/min; ESTIMATED GFR 71 mL/min (>60); GLUCOSE RANDOM 129 mg/dL (74-106); POTASSIUM,K 4.2 mmol/L (3.6-5.2); PROTEIN TOTAL,TP 6.5 g/dL (6.4-8.2); SODIUM,NA 132 mmol/L (140-148)
[2024-03-12] MEDS: Ondansetron 4 MG/2 ML SDV ONE (06:06)
[2024-03-12 06:19] LABS: BLOOD UREA NITROGEN,BUN 12 mg/dL (7-18)
[2024-03-12 06:20] LABS: ANION GAP 12.2 mmol/L (5.0-14.0)
[2024-03-12] MEDS: Sodium Chloride 0.9% 1,000 ML IV SCH (06:34)
[2024-03-12] MEDS: Cetirizine 10 MG Tab PO SCH (08:43)
[2024-03-12] MEDS: Metoprolol Succinate 25 MG Tab.ER PO SCH (08:43)
[2024-03-12] MEDS ORDERED: Gabapentin 400 MG Cap PO SCH (09:00)
[2024-03-12] MEDS: Gabapentin 400 MG Cap PO SCH (09:58)
[2024-03-12] MEDS: ceFAZolin 2 GM in Premix Bag 1 BAG IV ONE (15:50)
[2024-03-12] MEDS ORDERED: diphenhydrAMINE 50 MG/ML SDV ONE (16:16)
[2024-03-12] MEDS ORDERED: fentaNYL 100 MCG/2 ML SDV ONE (16:16)
[2024-03-12] MEDS ORDERED: Midazolam 1 MG/ML 2 ML SDV ONE (16:16)
[2024-03-12] MEDS ORDERED: Propofol 200 MG/20 ML SDV ONE (16:16)
[2024-03-12] MEDS: diphenhydrAMINE 50 MG/ML SDV IVPUSH ONE (16:20)
[2024-03-12] MEDS: Albuterol 0.083% 2.5 MG/3 ML Neb Soln INH PRN (16:25)
[2024-03-12] MEDS ORDERED: ePHEDrine 50 MG/ML SDV ONE (17:38)
[2024-03-12] MEDS: Bupivacaine 0.5% 50 ML MDV ONE (17:52)
[2024-03-12] MEDS: Benzocaine/Cetylpyridinium/Menthol Lozenge MUCMEM PRN (22:50)
[2024-03-12] MEDS: TRIAZOLAM 0.25 MG PO PRN (22:53)
[2024-03-13 05:32] LABS: BASOPHILS PERCENT AUTO 0.2 % (0.1-1.3); HEMATOCRIT 24.8 % (34.3-46.0); HEMOGLOBIN 8.4 g/dL (11.2-15.5); IMMATURE GRAN PERCENT AUTO 0.3 % (0.0-0.7); LYMPHOCYTES ABSOLUTE AUTO 0.54 K/uL (0.8-3.3); LYMPHOCYTES PERCENT AUTO 9.4 % (11.4-47.7); MEAN CORPUSCULAR HEMOGLOBIN 33.1 pg (31.6-35.5); MEAN CORPUSCULAR HGB CONC 33.9 g/dL (31.6-35.5); MEAN CORPUSCULAR VOLUME 97.6 fL (81.4-99.0); MONOCYTES ABSOLUTE AUTO 0.86 K/uL (0.20-0.90); MONOCYTES PERCENT AUTO 14.9 % (3.3-12.6); NEUTROPHILS ABSOLUTE AUTO 4.33 K/uL (1.0-7.6); NEUTROPHILS PERCENT AUTO 75.2 % (40.0-78.1); PLATELET COUNT,PLT 100 K/uL (130-375); RED BLOOD CELL COUNT 2.54 M/uL (3.77-5.24); WHITE BLOOD CELL COUNT,WBC 5.8 K/uL (3.2-11.0)
[2024-03-13 05:35] LABS: BASOPHILS ABSOLUTE AUTO 0.01 K/uL (0.00-0.10); IMMATURE GRAN ABSOLUTE AUTO 0.02 K/uL (0.00-0.23)
[2024-03-13 05:54] LABS: CALCIUM 7.8 mg/dL (8.5-10.1); CREATININE 0.9 mg/dL (0.6-1.0); EST CRCL DRUG DOSING (CG) 40.22 mL/min; POTASSIUM,K 4.2 mmol/L (3.6-5.2)
[2024-03-13 05:58] LABS: ANION GAP 10.2 mmol/L (5.0-14.0)
[2024-03-13 09:22] LABS: RETICULOCYTE COUNT PERCENT 1.45 % (0.03-0.11)
[2024-03-13] MEDS ORDERED: Ketorolac 30 MG/ML SDV IVPUSH PRN (12:31)
[2024-03-13] MEDS: Ketorolac 15 MG/ML SDV IVPUSH PRN (12:55)
[2024-03-14 05:27] LABS: BASOPHILS PERCENT AUTO 0.3 % (0.1-1.3); EOSINOPHILS PERCENT AUTO 0.5 % (0.0-5.4); IMMATURE GRAN ABSOLUTE AUTO 0.03 K/uL (0.00-0.23); IMMATURE GRAN PERCENT AUTO 0.8 % (0.0-0.7); LYMPHOCYTES ABSOLUTE AUTO 0.48 K/uL (0.8-3.3); LYMPHOCYTES PERCENT AUTO 12.2 % (11.4-47.7); MEAN CORPUSCULAR HEMOGLOBIN 32.5 pg (31.6-35.5); MEAN CORPUSCULAR HGB CONC 33.5 g/dL (31.6-35.5); MEAN CORPUSCULAR VOLUME 97.1 fL (81.4-99.0); MONOCYTES ABSOLUTE AUTO 0.48 K/uL (0.20-0.90); MONOCYTES PERCENT AUTO 12.2 % (3.3-12.6); NEUTROPHILS ABSOLUTE AUTO 2.91 K/uL (1.0-7.6); PLATELET COUNT,PLT 79 K/uL (130-375); RED BLOOD CELL COUNT 2.06 M/uL (3.77-5.24); WHITE BLOOD CELL COUNT,WBC 3.9 K/uL (3.2-11.0)
[2024-03-14 05:34] LABS: BASOPHILS ABSOLUTE AUTO 0.01 K/uL (0.00-0.10); EOSINOPHILS ABSOLUTE AUTO 0.02 K/uL (0.00-0.40); HEMOGLOBIN 6.7 g/dL (11.2-15.5)
[2024-03-14 05:44] LABS: CALCIUM 7.8 mg/dL (8.5-10.1); CREATININE 0.9 mg/dL (0.6-1.0); EST CRCL DRUG DOSING (CG) 40.22 mL/min; POTASSIUM,K 3.7 mmol/L (3.6-5.2)
[2024-03-14 05:48] LABS: ANION GAP 10.7 mmol/L (5.0-14.0)
[2024-03-14] MEDS: traMADol 50 MG Tab PO PRN (08:36)
[2024-03-14] MEDS: Apixaban 2.5 MG Tab PO SCH (09:23)
[2024-03-14] MEDS: Digoxin 125 MCG Tab PO ONE ×2 (10:39→14:21)
[2024-03-14] MEDS: Acetaminophen 325 MG Tab PO PRN (11:45)
[2024-03-15 05:15] LABS: HEMOGLOBIN 8.2 g/dL (11.2-15.5); RETICULOCYTE COUNT PERCENT 1.57 % (0.03-0.11)
[2024-03-15] MEDS: Digoxin 125 MCG Tab PO SCH (12:33)
[2024-03-15] MEDS: Digoxin 125 MCG Tab PO ONE (15:55)
[2024-03-15] MEDS: Furosemide 20 MG/2 ML VIAL IVPUSH ONE (15:58)
[2024-03-16 09:50] LABS: BASOPHILS PERCENT AUTO 0.3 % (0.1-1.3); EOSINOPHILS ABSOLUTE AUTO 0.08 K/uL (0.00-0.40); EOSINOPHILS PERCENT AUTO 1.4 % (0.0-5.4); HEMATOCRIT 24.9 % (34.3-46.0); HEMOGLOBIN 8.1 g/dL (11.2-15.5); IMMATURE GRAN ABSOLUTE AUTO 0.03 K/uL (0.00-0.23); IMMATURE GRAN PERCENT AUTO 0.5 % (0.0-0.7); LYMPHOCYTES ABSOLUTE AUTO 0.41 K/uL (0.8-3.3); LYMPHOCYTES PERCENT AUTO 7.1 % (11.4-47.7); MEAN CORPUSCULAR HEMOGLOBIN 31.5 pg (31.6-35.5); MEAN CORPUSCULAR HGB CONC 32.5 g/dL (31.6-35.5); MEAN CORPUSCULAR VOLUME 96.9 fL (81.4-99.0); MONOCYTES ABSOLUTE AUTO 0.64 K/uL (0.20-0.90); MONOCYTES PERCENT AUTO 11.1 % (3.3-12.6); NEUTROPHILS ABSOLUTE AUTO 4.61 K/uL (1.0-7.6); NEUTROPHILS PERCENT AUTO 79.6 % (40.0-78.1); PLATELET COUNT,PLT 125 K/uL (130-375); RED BLOOD CELL COUNT 2.57 M/uL (3.77-5.24); WHITE BLOOD CELL COUNT,WBC 5.8 K/uL (3.2-11.0)
[2024-03-16 09:58] LABS: BASOPHILS ABSOLUTE AUTO 0.02 K/uL (0.00-0.10)
[2024-03-16 10:04] LABS: CALCIUM 8.7 mg/dL (8.5-10.1); CREATININE 0.9 mg/dL (0.6-1.0); EST CRCL DRUG DOSING (CG) 40.22 mL/min
[2024-03-17 05:07] LABS: BASOPHILS PERCENT AUTO 0.4 % (0.1-1.3); EOSINOPHILS ABSOLUTE AUTO 0.14 K/uL (0.00-0.40); EOSINOPHILS PERCENT AUTO 2.7 % (0.0-5.4); HEMATOCRIT 22.7 % (34.3-46.0); HEMOGLOBIN 7.6 g/dL (11.2-15.5); IMMATURE GRAN ABSOLUTE AUTO 0.05 K/uL (0.00-0.23); LYMPHOCYTES ABSOLUTE AUTO 0.46 K/uL (0.8-3.3); LYMPHOCYTES PERCENT AUTO 8.8 % (11.4-47.7); MEAN CORPUSCULAR HEMOGLOBIN 31.7 pg (31.6-35.5); MEAN CORPUSCULAR HGB CONC 33.5 g/dL (31.6-35.5); MEAN CORPUSCULAR VOLUME 94.6 fL (81.4-99.0); MONOCYTES PERCENT AUTO 13.4 % (3.3-12.6); NEUTROPHILS ABSOLUTE AUTO 3.86 K/uL (1.0-7.6); NEUTROPHILS PERCENT AUTO 73.7 % (40.0-78.1); PLATELET COUNT,PLT 127 K/uL (130-375); RETICULOCYTE COUNT PERCENT 2.34 % (0.03-0.11); WHITE BLOOD CELL COUNT,WBC 5.2 K/uL (3.2-11.0)
[2024-03-17 05:09] LABS: BASOPHILS ABSOLUTE AUTO 0.02 K/uL (0.00-0.10)
[2024-03-17 05:20] LABS: ANION GAP 11.7 mmol/L (5.0-14.0); CALCIUM 8.5 mg/dL (8.5-10.1); CREATININE 0.7 mg/dL (0.6-1.0); EST CRCL DRUG DOSING (CG) 51.71 mL/min; POTASSIUM,K 3.7 mmol/L (3.6-5.2)
[2024-03-17 09:54] LABS: FOLIC ACID 11.6 ng/ml (8.6-58.9)
== END 2024-03-17 13:02 | disposition home or self-care (01) | DRG 522 ==
LOC: JP.ED 18:11 → JP.ICU 21:26
PROVIDERS: ADMIT Internal Medicine; ATTEND Internal Medicine
PROC: 0SRR0JZ Replacement of Right Hip Joint, Femoral Surface with Synthetic Substitute, Open Approach (ICD-10-PCS; principal; 2024-03-11)
DX: S72.001A Fracture of unspecified part of neck of right femur, initial encounter for closed fracture (principal); I11.0 Hypertensive heart disease with heart failure; I50.9 Heart failure, unspecified; I48.91 Unspecified atrial fibrillation; Z88.6 Allergy status to analgesic agent; Z88.5 Allergy status to narcotic agent; I95.81 Postprocedural hypotension; Z91.048 Other nonmedicinal substance allergy status; D64.89 Other specified anemias; J45.909 Unspecified asthma, uncomplicated; K21.9 Gastro-esophageal reflux disease without esophagitis; W18.30XA Fall on same level, unspecified, initial encounter; M10.9 Gout, unspecified; Z88.0 Allergy status to penicillin; H54.7 Unspecified visual loss; Z88.2 Allergy status to sulfonamides; Z88.1 Allergy status to other antibiotic agents; Z91.011 Allergy to milk products; Z88.8 Allergy status to other drugs, medicaments and biological substances; Z79.899 Other long term (current) drug therapy; Z79.51 Long term (current) use of inhaled steroids; Z87.81 Personal history of (healed) traumatic fracture; Z98.84 Bariatric surgery status; Z98.49 Cataract extraction status, unspecified eye; Z90.49 Acquired absence of other specified parts of digestive tract; Z98.890 Other specified postprocedural states; I25.2 Old myocardial infarction; Z87.19 Personal history of other diseases of the digestive system; W01.0XXA Fall on same level from slipping, tripping and stumbling without subsequent striking against object, initial encounter
CPT/HCPCS: 01230-QZ; 36415; 36430; 51702; 51798; 71045; 71045-26; 73501-26-RT; 73501-RT; 73502-26-RT; 73502-RT; 73560-26-RT; 73560-RT; 73600-26-RT; 73600-RT; 80048; 80053; 80162; 82550; 82607; 82746; 85018; 85025; 85045; 85049; 85610; 86850; 86900; 86901; 86920; 86922; 93005; 93010; 94640; 96361; 96374; 96375; 97110-GP; 97116-GP; 97161-GP; 97165-GO; 97530-GP; 99283; 99285-25; A9270-GY; C1713; C1776; J0665; J0690; J0780; J1170; J1200; J1885; J1940; J2250; J2405; J2704; J3010; J7030; P9016

== ENCOUNTER 2024-04-13 10:10 | Inpatient (IN) | payer MEDICARE ==
[2024-04-13 12:38] LABS: BASOPHILS PERCENT AUTO 0.2 % (0.1-1.3); EOSINOPHILS PERCENT AUTO 0.1 % (0.0-5.4); HEMATOCRIT 32.1 % (34.3-46.0); HEMOGLOBIN 11.1 g/dL (11.2-15.5); IMMATURE GRAN ABSOLUTE AUTO 0.03 K/uL (0.00-0.23); IMMATURE GRAN PERCENT AUTO 0.4 % (0.0-0.7); LYMPHOCYTES ABSOLUTE AUTO 0.85 K/uL (0.8-3.3); LYMPHOCYTES PERCENT AUTO 10.5 % (11.4-47.7); MEAN CORPUSCULAR HEMOGLOBIN 30.9 pg (31.6-35.5); MEAN CORPUSCULAR HGB CONC 34.6 g/dL (31.6-35.5); MEAN CORPUSCULAR VOLUME 89.4 fL (81.4-99.0); MONOCYTES ABSOLUTE AUTO 0.55 K/uL (0.20-0.90); MONOCYTES PERCENT AUTO 6.8 % (3.3-12.6); NEUTROPHILS ABSOLUTE AUTO 6.65 K/uL (1.0-7.6); PLATELET COUNT,PLT 253 K/uL (130-375); RED BLOOD CELL COUNT 3.59 M/uL (3.77-5.24); WHITE BLOOD CELL COUNT,WBC 8.1 K/uL (3.2-11.0)
[2024-04-13 12:39] LABS: BASOPHILS ABSOLUTE AUTO 0.02 K/uL (0.00-0.10); EOSINOPHILS ABSOLUTE AUTO 0.01 K/uL (0.00-0.40)
[2024-04-13 12:57] LABS: A/G RATIO 0.7 (1.2-2.2); ALANINE AMINOTRANSFERASE,ALT 15 U/L (12-78); ALBUMIN 3.4 g/dL (3.4-5.0); ALKALINE PHOSPHATASE 107 U/L (46-116); ASPARTATE AMNIOTRANSFERASE,AST 17 U/L (15-37); BILIRUBIN TOTAL 0.4 mg/dL (0.2-1.0); BLOOD UREA NITROGEN,BUN 6 mg/dL (7-18); CALCIUM 9.1 mg/dL (8.5-10.1); CARBON DIOXIDE,CO2 25 mmol/L (21-32); CREATININE 0.8 mg/dL (0.6-1.0); EST CRCL DRUG DOSING (CG) 40.58 mL/min; ESTIMATED GFR 71 mL/min (>60); GLUCOSE RANDOM 118 mg/dL (74-106); PROTEIN TOTAL,TP 8.3 g/dL (6.4-8.2)
[2024-04-13 13:51] LABS: ANION GAP 13.8 mmol/L (5.0-14.0)
[2024-04-13 13:53] LABS: CHLORIDE,CL 95 mmol/L (100-108); POTASSIUM,K 3.8 mmol/L (3.6-5.2); SODIUM,NA 130 mmol/L (140-148)
[2024-04-13] MEDS ORDERED: Gabapentin 400 MG Cap PO SCH (14:00)
[2024-04-13] MEDS: Dextrose 5%-0.9% NaCl with KCl 1,000 ML IV SCH (15:46)
[2024-04-13] MEDS: Ketorolac 10 MG Tab PO PRN (15:48)
[2024-04-13] MEDS: Prochlorperazine 10 MG Tab PO PRN (15:56)
[2024-04-13 16:03] LABS: APPEARANCE,URINE CLEAR (CLEAR); BILIRUBIN,URINE NEGATIVE (NEGATIVE); COLOR,URINE YELLOW (YELLOW); GLUCOSE,URINE NEGATIVE (NEGATIVE); KETONES,URINE NEGATIVE (NEGATIVE); LEUKOCYTE ESTERASE,URINE SMALL (NEGATIVE); NITRITE,URINE NEGATIVE (NEGATIVE); OCCULT BLOOD,URINE TRACE-INTACT (NEGATIVE); PH,URINE 7.5 (5.0-8.0); PROTEIN,URINE NEGATIVE (NEGATIVE); UROBILINOGEN,URINE 0.2 EU/dL (0.2-1.0)
[2024-04-13 16:12] LABS: AMORPHOUS SEDIMENT,URINE NOT SEEN; BACTERIA,URINE FEW; EPITHELIAL CELLS,URINE RARE; MUCUS,URINE FEW; RBC,URINE 0-5 (0-5)
[2024-04-13] MEDS ORDERED: Lidocaine 4% 1 each Patch TOP SCH (17:00)
[2024-04-13] MEDS: Lidocaine 4% 1 each Patch TOP SCH (17:19)
[2024-04-13] MEDS: Clindamycin in 0.9 % Sod Chlor 600 MG in Premix Bag 1 BAG IV SCH (17:19)
[2024-04-13] MEDS: Gabapentin 400 MG Cap PO SCH (20:04)
[2024-04-13] MEDS: Temazepam 15 MG Cap PO PRN (22:31)
[2024-04-13] MEDS: Silver Sulfadiazine 1% Crm 50 GM Tube TOP PRN (22:31)
[2024-04-14 05:48] LABS: CALCIUM 8.4 mg/dL (8.5-10.1); CREATININE 0.8 mg/dL (0.6-1.0); EST CRCL DRUG DOSING (CG) 41.04 mL/min; POTASSIUM,K 3.7 mmol/L (3.6-5.2)
[2024-04-14 05:54] LABS: ANION GAP 13.7 mmol/L (5.0-14.0)
[2024-04-14] MEDS: Magnesium Oxide 400 MG Tab PO SCH (09:09)
[2024-04-14] MEDS: Cholecalciferol (Vitamin D3) 25 MCG Tab PO SCH (09:09)
[2024-04-14] MEDS: Acetaminophen 325 MG Tab PO PRN (13:10)
[2024-04-14] MEDS: traMADol 50 MG Tab PO PRN (16:39)
[2024-04-14] MEDS: GABAPENTIN 400 MG PO SCH (22:15)
[2024-04-14] MEDS: PROCHLORPERAZINE 10 MG PO PRN (22:16)
[2024-04-14] MEDS: tiZANidine 2 MG Tab PO SCH (22:19)
[2024-04-15 05:24] LABS: BASOPHILS ABSOLUTE AUTO 0.04 K/uL (0.00-0.10); BASOPHILS PERCENT AUTO 0.9 % (0.1-1.3); EOSINOPHILS ABSOLUTE AUTO 0.04 K/uL (0.00-0.40); EOSINOPHILS PERCENT AUTO 0.9 % (0.0-5.4); HEMATOCRIT 27.3 % (34.3-46.0); HEMOGLOBIN 9.2 g/dL (11.2-15.5); IMMATURE GRAN PERCENT AUTO 0.2 % (0.0-0.7); LYMPHOCYTES ABSOLUTE AUTO 0.89 K/uL (0.8-3.3); LYMPHOCYTES PERCENT AUTO 19.5 % (11.4-47.7); MEAN CORPUSCULAR HEMOGLOBIN 30.5 pg (31.6-35.5); MEAN CORPUSCULAR HGB CONC 33.7 g/dL (31.6-35.5); MEAN CORPUSCULAR VOLUME 90.4 fL (81.4-99.0); MONOCYTES ABSOLUTE AUTO 0.62 K/uL (0.20-0.90); MONOCYTES PERCENT AUTO 13.6 % (3.3-12.6); NEUTROPHILS ABSOLUTE AUTO 2.96 K/uL (1.0-7.6); NEUTROPHILS PERCENT AUTO 64.9 % (40.0-78.1); PLATELET COUNT,PLT 185 K/uL (130-375); RED BLOOD CELL COUNT 3.02 M/uL (3.77-5.24); WHITE BLOOD CELL COUNT,WBC 4.6 K/uL (3.2-11.0)
[2024-04-15 05:39] LABS: CALCIUM 8.1 mg/dL (8.5-10.1); CREATININE 0.7 mg/dL (0.6-1.0); EST CRCL DRUG DOSING (CG) 46.9 mL/min; POTASSIUM,K 3.8 mmol/L (3.6-5.2)
[2024-04-15 05:43] LABS: IMMATURE GRAN ABSOLUTE AUTO 0.01 K/uL (0.00-0.23)
[2024-04-15 06:56] LABS: ANION GAP 11.8 mmol/L (5.0-14.0)
[2024-04-15] MEDS: Doxycycline 100 MG Cap PO SCH (09:24)
[2024-04-15] MEDS: Hydrochlorothiazide 25 MG Tab PO SCH (15:34)
[2024-04-15] MEDS: Magnesium Oxide 400 MG Tab PO SCH (17:05)
[2024-04-16] MEDS: Saliva Substitute Oral Spray 120 ML Bottle MUCMEM PRN (00:14)
[2024-04-16] MEDS ORDERED: Propofol 200 MG/20 ML SDV ONE (07:06)
[2024-04-16] MEDS: Pantoprazole 40 MG Tab.CR PO SCH (08:45)
[2024-04-16] MEDS: GABAPENTIN 400 MG PO SCH (08:46)
[2024-04-16] MEDS: Nystatin Susp 100,000 Unit/ML 5 ML UD Cup PO SCH (08:49)
[2024-04-16] MEDS ORDERED: Gabapentin 400 MG Cap PO SCH (09:00)
[2024-04-16] MEDS ORDERED: Prochlorperazine 10 MG Tab PO PRN (13:56)
[2024-04-16] MEDS: Gabapentin 300 MG Cap PO SCH (21:11)
[2024-04-17 06:53] LABS: CREATININE 0.8 mg/dL (0.6-1.0); EST CRCL DRUG DOSING (CG) 41.66 mL/min; VANCOMYCIN RANDOM 22.8 ug/mL (0.0-50.0)
[2024-04-17] MEDS ORDERED: Gabapentin 300 MG Cap PO SCH (21:00)
== END 2024-04-17 15:07 | disposition home or self-care (01) | DRG 948 ==
LOC: JP.MS 10:10 → OBSVTOIN 04-16 13:41
PROVIDERS: ADMIT Internal Medicine; ATTEND Internal Medicine
PROC: 0DJ08ZZ Inspection of Upper Intestinal Tract, Via Natural or Artificial Opening Endoscopic (ICD-10-PCS; principal; 2024-04-16 07:00)
DX: R53.1 Weakness (principal); T81.49XA Infection following a procedure, other surgical site, initial encounter; L03.115 Cellulitis of right lower limb; Z68.1 Body mass index [BMI] 19.9 or less, adult; R63.4 Abnormal weight loss; I11.0 Hypertensive heart disease with heart failure; I50.9 Heart failure, unspecified; M54.50 Low back pain, unspecified; K21.9 Gastro-esophageal reflux disease without esophagitis; F41.9 Anxiety disorder, unspecified; J45.909 Unspecified asthma, uncomplicated; H54.7 Unspecified visual loss; K25.9 Gastric ulcer, unspecified as acute or chronic, without hemorrhage or perforation; K29.70 Gastritis, unspecified, without bleeding; B95.62 Methicillin resistant Staphylococcus aureus infection as the cause of diseases classified elsewhere; Z88.2 Allergy status to sulfonamides; Z88.6 Allergy status to analgesic agent; Z88.0 Allergy status to penicillin; Z88.5 Allergy status to narcotic agent; Z88.8 Allergy status to other drugs, medicaments and biological substances; Z98.49 Cataract extraction status, unspecified eye; Z90.49 Acquired absence of other specified parts of digestive tract; Z98.890 Other specified postprocedural states; Z87.891 Personal history of nicotine dependence
CPT/HCPCS: 36415 ×3; 72100 ×2; 72148 ×2; 73502 ×2; 73552 ×2; 80048 ×2; 80053; 81001; 85025 ×2; 87070; 87077; 87186; 87205; 96361 ×2; 96365; 96366; 96367; 96376 ×2; 97110 ×2; 97161; 97530 ×2; A9270 ×35; G0378 ×5; J2704; J3370 ×2; J3480 ×2; J3490 ×5; J7050 ×2; Q0164 ×4; 00731-QZ; 80202; 82565

== ENCOUNTER 2024-11-24 15:44 | Emergency (ER) | payer MEDICARE ==
[2024-11-24 17:04] LABS: BASOPHILS ABSOLUTE AUTO 0.04 K/uL (0.00-0.10); BASOPHILS PERCENT AUTO 0.6 % (0.1-1.3); EOSINOPHILS ABSOLUTE AUTO 0.11 K/uL (0.00-0.40); EOSINOPHILS PERCENT AUTO 1.5 % (0.0-5.4); HEMATOCRIT 32.6 % (34.3-46.0); IMMATURE GRAN ABSOLUTE AUTO 0.04 K/uL (0.00-0.23); IMMATURE GRAN PERCENT AUTO 0.6 % (0.0-0.7); LYMPHOCYTES ABSOLUTE AUTO 1.59 K/uL (0.8-3.3); LYMPHOCYTES PERCENT AUTO 21.9 % (11.4-47.7); MEAN CORPUSCULAR HEMOGLOBIN 33.4 pg (31.6-35.5); MEAN CORPUSCULAR HGB CONC 33.7 g/dL (31.6-35.5); MEAN CORPUSCULAR VOLUME 99.1 fL (81.4-99.0); MONOCYTES ABSOLUTE AUTO 0.62 K/uL (0.20-0.90); MONOCYTES PERCENT AUTO 8.6 % (3.3-12.6); NEUTROPHILS ABSOLUTE AUTO 4.85 K/uL (1.0-7.6); NEUTROPHILS PERCENT AUTO 66.8 % (40.0-78.1); PLATELET COUNT,PLT 169 K/uL (130-375); RED BLOOD CELL COUNT 3.29 M/uL (3.77-5.24); WHITE BLOOD CELL COUNT,WBC 7.3 K/uL (3.2-11.0)
[2024-11-24 17:26] LABS: CREATININE 1.1 mg/dL (0.6-1.0); EST CRCL DRUG DOSING (CG) 31.53 mL/min; POTASSIUM,K 4.1 mmol/L (3.6-5.2); TROPONIN I HIGH SENSITIVITY 11.6 pg/mL (<=60.3)
[2024-11-24 17:29] LABS: ANION GAP 12.1 mmol/L (5.0-14.0)
== END 2024-11-24 17:49 | disposition home or self-care (01) ==
LOC: JP.ED 15:44
DX: J40 Bronchitis, not specified as acute or chronic (principal); I11.0 Hypertensive heart disease with heart failure; I50.9 Heart failure, unspecified; I48.91 Unspecified atrial fibrillation; Z86.16 Personal history of COVID-19; Z88.1 Allergy status to other antibiotic agents; Z88.2 Allergy status to sulfonamides; Z88.8 Allergy status to other drugs, medicaments and biological substances; Z91.018 Allergy to other foods; Z88.5 Allergy status to narcotic agent; Z88.6 Allergy status to analgesic agent; Z88.0 Allergy status to penicillin; Z79.899 Other long term (current) drug therapy; Z90.49 Acquired absence of other specified parts of digestive tract; Z87.891 Personal history of nicotine dependence
CPT/HCPCS: 36415; 71046; 71046-26; 80048; 84484; 85025; 87428-QW; 93005; 99285